=== PATIENT | female | born 1975 | race Caucasian/White ===

== ENCOUNTER → 2023-08-10 11:06 | Outpatient (BNV) | payer OTHER, SELFPAY | PROVIDERS: PCP Physician Assistant Medical; Referring Provider Physician Assistant Medical; Visit Provider Internal Medicine Medical Oncology | DX: R74.8 Abnormal levels of other serum enzymes (principal) | CPT/HCPCS: 99204; 99213 ==

== ENCOUNTER → 2023-10-05 12:30 | Outpatient (REF) | payer OTHER, SELFPAY ==
--- NOTE | ~2023-10-05 | NM_ITS ---
EXAMINATION: NM BONE SCAN OF THE WHOLE BODY CLINICAL INFORMATION: Elevated alkaline phosphatase. COMPARISON: No previous bone scan or radiographs are available for comparison. TECHNIQUE: Multiple gamma scintillation camera images of the whole body were performed 2.5 hours following the intravenous administration of 23 mCi Tc-99m MDP. FINDINGS: In the head, no significant abnormalities are present. In the thoracic cage and upper extremities, there is mildly increased activity in the acromioclavicular joints bilaterally and minimally increased activity in the sternoclavicular joints bilaterally. In the spine, a moderately severe well compensated S-shaped thoracolumbar scoliosis is present with lumbar convexity to the left. There are foci of minimally increased activity present in the lumbar spine diffusely and in the lower thoracic spine. In the pelvis, no significant abnormalities are present. In the lower extremities, there is mildly increased activity in the patellar compartments of both knees and in an additional small focus in the medial femoral condyle on the left. No other definite bony abnormalities are noted. The urinary bladder and faint visualization of both kidneys are noted. NM/NM bone scan whole body IMPRESSION: A few mild nonspecific abnormalities are noted as described above and these are all likely arthritic or traumatic in etiology. None of these abnormalities is strongly suspicious for metastatic disease. There are no abnormalities typical of Paget's disease of bone noted.
== END ==
LOC: HO.NUCMED 12:30
PROVIDERS: PCP Physician Assistant Medical; Visit Provider Internal Medicine Medical Oncology
DX: R74.8 Abnormal levels of other serum enzymes (principal)
CPT/HCPCS: 78306; A9503

== ENCOUNTER 2023-10-16 08:50 | Outpatient (REF) | payer OTHER, SELFPAY ==
--- NOTE | ~2023-10-16 | CT_ITS ---
EXAMINATION: CT ABDOMEN AND PELVIS WITH CONTRAST CLINICAL INFORMATION: Elevated alkaline phosphatase COMPARISON: None available. TECHNIQUE: Multidetector volumetric images were obtained from the superior aspect of the liver through the pubic symphysis following administration 85 mL of Omnipaque 350 intravenous contrast. Sagittal and coronal reformatted images were obtained on the technologist's workstation. Oral contrast: No This CT examination was performed using dose optimization techniques as appropriate, variously including the following: *Automated exposure control *Adjustment of mA and/or kV according to patient size (this includes techniques or standardized protocols for targeted exams where dose is matched to indication/reason for exam; i.e. extremities or head) *Use of iterative reconstruction technique DLP: 371 mGy-cm FINDINGS: LUNG BASES: Atelectasis at left lung base. Large hiatal hernia. LIVER, GALLBLADDER, AND BILIARY TREE: The liver is normal in size, shape, and attenuation. No focal hepatic lesion or biliary ductal dilatation is present. The gallbladder is unremarkable with no evidence of radiopaque gallstones, gallbladder wall thickening, or obvious pericholecystic inflammatory changes. PANCREAS: Unremarkable. SPLEEN: Unremarkable. ADRENAL GLANDS: Unremarkable. KIDNEYS AND URETERS: Indeterminate 1 cm cortical hypodensity upper pole of left kidney. Density measurement 100 Hounsfield units. 4 mm cortical hypodensity lower pole of right kidney is small characterize. No renal calculus. No hydronephrosis. BLADDER: Unremarkable. GASTROINTESTINAL TRACT: Partially visualized large hiatal hernia. Nonobstructed transverse colon and nearly the entire stomach is above the diaphragm. No obstruction of bowel. No bowel wall thickening or edema. Large volume of stool in colon. The appendix is normal. No inflammation of mesentery ABDOMINAL WALL: No significant hernia is appreciated. LYMPH NODES: Normal. VASCULAR: Unremarkable. PELVIC VISCERA: Uterus is anteverted. IUD in endometrial cavity. OSSEOUS STRUCTURES: Marked levoscoliosis of thoracolumbar spine. Multilevel degenerative spondylosis spine. CT/CT abdomen pelvis w IV con IMPRESSION: 1. No acute abnormality CT scan abdomen pelvis. 2. Large hiatal hernia. 3. Indeterminate 1 cm cortical hypodensity upper pole left kidney. This can be further assessed with ultrasound. Fleischner guidelines were followed.
[2023-10-16] MEDS: iohexoL 350 MG/ML 100 ML INFUS..BTL 85 ML IV (11:32)
[2023-10-16] MEDS: Barium Sulfate Oral (Vanilla) 450 ML ORAL.SUSP 900 ML PO (11:33)
== END 2023-10-16 08:51 | disposition home or self-care (01) ==
LOC: HO.CT 08:50
PROVIDERS: PCP Physician Assistant Medical; Visit Provider Internal Medicine Medical Oncology
DX: R39.9 Unspecified symptoms and signs involving the genitourinary system (principal); P09.8 Other abnormal findings on neonatal screening
CPT/HCPCS: 74177; Q9967

== ENCOUNTER 2023-11-06 08:03 | Outpatient (REF) | payer OTHER, SELFPAY ==
--- NOTE | ~2023-11-06 | US_ITS ---
EXAMINATION: US ABDOMEN COMPLETE CLINICAL INFORMATION: Left renal hypodensity on CT scan. COMPARISON: CT abdomen and pelvis 10/16/2023. TECHNIQUE: Real-time imaging of the abdominal viscera. Limited visualization due to bowel gas. FINDINGS: PANCREAS: Limited visualization of pancreatic tail and head. Imaged portion of pancreatic body is unremarkable. ABDOMINAL AORTA: Limited visualization. INFERIOR VENA CAVA: Visualized portions are normal. LIVER: Borderline increased hepatic parenchymal heterogeneity and echogenicity could be associated with hepatocellular disease/hepatic steatosis and substantially limits visualization. Correlation with liver function tests and clinical exam recommended to determine further management. GALLBLADDER: No gallstones. No gallbladder wall thickening. COMMON BILE DUCT: Normal in caliber measuring 0.4 cm in diameter. RIGHT KIDNEY: No hydronephrosis. No renal calculi. Limited visualization. A 0.9 cm echogenic lesion in the midpole of the right kidney is difficult to characterize due to small size and limited visualization, but may possibly represent an angiomyolipoma. This may possibly correlate with the 4 mm hypodensity seen on CT scan of 10/16/2023. The kidney measures 8.7 cm in maximum dimension. LEFT KIDNEY: No hydronephrosis. No renal calculi. Limited visualization. The left renal upper pole 1 cm indeterminate cortical hypodensity identified on CT scan of 10/16/2023 is not visualized on this exam, likely due to bowel gas and body habitus. The kidney measures 10.9 cm in maximum dimension. SPLEEN: Normal. The spleen measures 11.0 cm in maximum dimension. FREE FLUID: None. US/US abdomen complete IMPRESSION: 1. Borderline increased hepatic parenchymal heterogeneity and echogenicity could be associated with hepatocellular disease/hepatic steatosis and limits visualization. Correlation with liver function tests and clinical exam recommended to determine further management. 2. A 0.9 cm echogenic lesion in the midpole of the right kidney is difficult to characterize due to small size and limited visualization, but may possibly represent an angiomyolipoma. Previous CT scan of 10/16/2023 demonstrated a 0.4 cm hypodensity which was too small to characterize. 3. The left renal upper pole 1 cm indeterminate cortical hypodensity identified on CT scan of 10/16/2023 is not visualized on this exam, likely due to bowel gas and body habitus. CT scan employing renal mass protocol with and without intravenous contrast should be considered for further evaluation.
== END 2023-11-06 08:04 | disposition home or self-care (01) ==
LOC: HO.US 08:03
PROVIDERS: PCP Physician Assistant Medical; Visit Provider Internal Medicine Medical Oncology
DX: R39.9 Unspecified symptoms and signs involving the genitourinary system (principal)
CPT/HCPCS: 76700

== ENCOUNTER 2023-11-08 10:29 | Outpatient (AMB) | payer OTHER, SELFPAY ==
--- NOTE | 2023-11-08 10:32 | MHC.OFFVIS ---
Vital Signs 11/08/23 10:33 Height 5 ft 3 in Weight 144 lb 8 oz BMI 25.6 BP 110/76 Blood Pressure Location Lt brachial Position Sitting Pulse 72 Pulse Source Pulse Oximeter Pulse Oximetry (%) 97 Oxygen Delivery Method Room Air Intake Visit Reasons: Cough Allergies No Known Allergies Allergy (Verified 11/08/23 10:38) HPI HPI Cough: Details: Sarah is a pleasant 48 year old female, former smoker with approximately 20 pack year history, quit 2009, with underlying multiple sclerosis on Ocrevus, ADD and RLS. She was referred for pulmonary evaluation for chronic cough. She reports having COVID in March and recovering at home. Cough developed mid June, initially dry more recently wet cough, not coughing up any mucous, with persistent post nasal drip which is worse in the morning. She maintains an active lifestyle attending the gym a few times per week and reports inability to fully inspire and chest tightness with moderate exertion. She denies prior history of asthma. She reports father, smoker, with breathing issues , otherwise no pertinent family history. Recent abdominal CT, revealed mild atlectasis of LLL. No complete imaging of chest. She also notes significant scoliosis. She denies any occupational exposures. She is unsure if she has any environmental allergies. [facility] Medical History (Updated 11/08/23 @ 11:08 by Park Adkins NP) Scoliosis Multiple sclerosis Iron deficiency anemia Family History Sister Malignant neoplasm cervix Social History (Updated 11/08/23 @ 10:38 by Deepika Lala CMA) Household Members: Spouse Patient Tobacco Use Status: Former Tobacco user service: No Current occupational status: unemployed Review of Systems Const Denies chills, Denies excessive sweating, Denies fever(s), Denies headache(s) and Denies night sweats Eyes Denies dry eyes, Denies irritation and Denies itchy eyes ENT Reports Normal hearing present, Denies headache(s), Denies nasal congestion, Denies nasal discharge and Denies sore throat Card Denies chest pain, Denies chest pain at rest, Denies chest pain with activity, Denies claudication, Denies leg edema, Denies dyspnea, Denies orthopnea and Denies paroxysmal nocturnal dyspnea Resp Denies excessive phlegm production, Denies pain on inspiration, Denies pain with cough, Denies dyspnea, Denies stridor and Denies wheezing Musc Denies myalgias Neuro Reports Normal hearing present and Denies headache(s) Endo Denies excessive sweating Rickey/Lymph Denies lymphadenopathy Aller/Immun Denies itchy eyes, Denies seasonal rhinorrhea and Denies wheezing Physical Exam Vital Signs: Last Vital Signs Pulse 72 11/08/23 10:33 BP 110/76 11/08/23 10:33 Pulse Ox 97 11/08/23 10:33 Oxygen Delivery Method Room Air 11/08/23 10:33 BMI result Body Mass Index 25.6 Const General: cooperative, healthy appearing, comfortable, no acute distress, well developed and alert Orientation/consciousness: patient oriented x3 Limitations: no limitations HEENT Head: Yes normal to inspection, Yes normocephalic and Yes atraumatic Ears: hearing grossly normal bilaterally and external ears normal Eyes General: appearance normal, both eyes and all related structures Eyelids: Yes eyelids normal Sclerae: sclerae normal EOM: EOMs intact bilaterally Neck Neck: Yes normal visual inspection and Yes no lymphadenopathy Lymphatic: no lymphadenopathy noted Chest Chest palpation & inspection: normal inspection of the chest Resp Effort & Inspection: normal respiratory effort, able to speak in complete sentences, no audible wheezes, no cough, no stridor, not tachypneic, no tripod positioning and no use of accessory muscles Auscultation: clear to auscultation bilaterally Cardio Jugular venous distension: no JVD Rate: regular rate Rhythm: regular rhythm Skin Other: warm, dry General skin exam: no rashes or lesions noted Neuro General: patient oriented x3 Cranial nerves: Yes Normal hearing present Cognition (Neuro): normal cognition Gait exam (Neuro): Normal gait present Extrem General: Yes normal to inspection, Yes capillary refill normal, Yes no clubbing, cyanosis or edema and Yes no pedal edema Psych Appearance: grossly normal and well kempt Speech and movement: Normal speech and movement present and Clear speech present Affect: normal affect Attitude: cooperative Insight: Good insight present (Psych) Judgement: Good judgement present (Psych) Assessment & Plan Assessment & Plan (1) Cough: Code(s): R05.9 - Cough, unspecified Category: Medical (2) Restrictive lung disease due to kyphoscoliosis: Code(s): J98.4 - Other disorders of lung; M41.9 - Scoliosis, unspecified Category: Medical (3) Environmental allergies: Code(s): Z91.09 - Other allergy status, other than to drugs and biological substances Category: Medical Plan Unclear etiology of chronic cough, possible allergic contribution and underlying asthma. Will send for RAST and PFT to evaluate. Will also send for CXR and likely chest CT. She reports moderate post nasal drip, will trial ipratripium nasal spray. All questions were answered and patient is in agreement of plan. Will follow up in 4-6 weeks or sooner if needed. Orders: Orders XR chest 2V Today R05.9 - Cough, unspecified PFT pulmonary function test Today J98.4 - Other disorders of lung, M41.9 - Scoliosis, unspecified, R05.9 - Cough, unspecified Resp Allergy Profile Region I Today Z91.09 - Other allergy status, other than to drugs and biological substances Complete Blood Count Auto Diff Today Z91.09 - Other allergy status, other than to drugs and biological substances Immunoglobulin E Today Z91.09 - Other allergy status, other than to drugs and biological substances Medications: New ipratropium bromide administer into each nostril start 1 spray each nostril daily, then increase to twice daily if needed 2 sprays intranasal BID 30 mL 2RF Coding Level of Care Code New Pt Level 4 (84416) Diagnoses Cough R05.9 Restrictive lung disease due to kyphoscoliosis J98.4; M41.9 Environmental allergies Z91.09
[2023-11-08 10:33] VITALS: BP 110/76; PULSE 72; O2SAT 97; BMI 25.6
== END 2023-11-08 11:18 | disposition home or self-care (01) ==
PROVIDERS: PCP Physician Assistant Medical; Referring Provider Internal Medicine Medical Oncology; Visit Provider Nurse Practitioner Family
DX: R05.9 Cough, unspecified (principal); J98.4 Other disorders of lung; M41.9 Scoliosis, unspecified; Z91.09 Other allergy status, other than to drugs and biological substances
CPT/HCPCS: 99204

== ENCOUNTER → 2023-11-08 10:29 | Outpatient (BNVA) | payer OTHER, SELFPAY | PROVIDERS: PCP Physician Assistant Medical; Referring Provider Internal Medicine Medical Oncology; Visit Provider Nurse Practitioner Family | DX: R05.3 Chronic cough (principal); J98.4 Other disorders of lung; M41.9 Scoliosis, unspecified; Z91.09 Other allergy status, other than to drugs and biological substances; Z87.891 Personal history of nicotine dependence | CPT/HCPCS: 99202 ==

== ENCOUNTER 2023-11-08 11:31 | Outpatient (REF) | payer OTHER, SELFPAY ==
[2023-11-08 13:59] LABS: MANUAL DIFF FLAG NO
[2023-11-08 14:08] LABS: Basophils Absolute Auto 0.1 X10*3/uL (0.0-0.2); Basophils Percent Auto 1.3 % (0-2); Eosinophils Absolute Auto 0.2 X10*3/uL (0.0-0.4); Eosinophils Percent Auto 3.6 % (0-4); Hematocrit 38.9 % (37.0-47.0); Hemoglobin 12.3 g/dl (12.0-16.0); Lymphocytes Absolute Auto 0.9 X10*3/uL (1.2-4.9); Mean Corpuscular HGB Conc 31.6 g/dl (31.0-35.0); Mean Corpuscular Hemoglobin 28.7 pg (27.0-33.0); Mean Corpuscular Volume 90.7 fL (80.0-98.0); Mean Platelet Volume 10.5 fL (9.4-12.3); Monocytes Absolute Auto 0.5 X10*3/uL (0.1-1.2); Monocytes Percent Auto 10.8 % (2-11); Neutrophils Absolute Auto 3.1 x10*3/uL (2.0-8.3); Neutrophils Percent Auto 65.3 % (45-73); Platelet Count 334 X10*3/uL (160-400); Red Blood Count 4.29 X10*6/uL (4.20-5.50); Red Cell Distribution Width 13.7 % (11.0-16.0); White Blood Count 4.7 X10*3/uL (4.8-10.8)
[2023-11-09 20:18] LABS: Class Alternaria alternata 0; Class Aspergillus fumigatus 0; Class Bermuda Grass 0; Class Birch 0; Class Cat Dander 0; Class Cladosporium herbarum 0; Class Cockroach 0; Class Common Ragweed 0; Class Cottonwood 0; Class Derm. pterony 0; Class Dermatophagoides farinae 0; Class Dog Dander 0; Class Elm 0; Class Maple Box Elder 0; Class Mountain Cedar 0; Class Mouse Urine Protein 0; Class Mugwort 0; Class Oak 0; Class Penicillium crysogenum 0; Class Rough Pigweed 0; Class Sheep Sorrel 0; Class Sycamore 0; Class Timothy Grass 0; Class Walnut Tree 0; Class White Ash 0; Class White Mulberry 0; D001 IgE D pteronyssinus <0.10 kU/L; D002 - IgE D farinae <0.10 kU/L; E001 - IgE Cat Dander <0.10 kU/L; E005 - IgE Dog Dander <0.10 kU/L; E072-IgE Mouse Urine <0.10 kU/L; G002 IgE Bermuda Grass <0.10 kU/L; G006 - IgE Timothy Grass <0.10 kU/L; I006-IgE Cockroach, German <0.10 kU/L; Immunoglobulin E 7 kU/L (<OR=114); M001 IgE Penicillium chrysogen <0.10 kU/L; M002 - IgE Cladosporium herbar <0.10 kU/L; M003 - IgE Aspergillus fumigat <0.10 kU/L; M006 - IgE Alternaria alternat <0.10 kU/L; T001 IgE Maple/Box Elder <0.10 kU/L; T003 IgE Common Silver Birch <0.10 kU/L; T006 - IgE Cedar, Mountain <0.10 kU/L; T007 - IgE Oak, White <0.10 kU/L; T008 IgE Elm, American <0.10 kU/L; T010 - IgE Walnut <0.10 kU/L; T011 - IgE Maple Leaf Sycamore <0.10 kU/L; T014 - IgE Cottonwood <0.10 kU/L; T015 - IgE Ash, White <0.10 kU/L; T070 - IgE White Mulberry <0.10 kU/L; W001 - IgE Ragweed, Short <0.10 kU/L; W006 - IgE Mugwort <0.10 kU/L; W014 IgE Pigweed, Common <0.10 kU/L; W018 IgE Sheep Sorrel <0.10 kU/L
== END 2023-11-08 11:32 | disposition home or self-care (01) ==
LOC: HO.WFDLDS 11:31
PROVIDERS: Visit Provider Nurse Practitioner Family
DX: Z91.09 Other allergy status, other than to drugs and biological substances (principal)
CPT/HCPCS: 36415; 82785; 85025; 86003

== ENCOUNTER → 2023-11-22 09:45 | Outpatient (BNV) | payer OTHER, SELFPAY | PROVIDERS: PCP Physician Assistant Medical; Visit Provider Radiology Diagnostic Radiology | DX: Z12.31 Encounter for screening mammogram for malignant neoplasm of breast (principal) | CPT/HCPCS: 77063; 77067 ==

== ENCOUNTER 2023-11-22 09:46 | Outpatient (REF) | payer OTHER, SELFPAY ==
--- NOTE | ~2023-11-22 | MM_ITS ---
EXAMINATION: MM SCREENING DIGITAL BREAST TOMOSYNTHESIS, BILATERAL CLINICAL INFORMATION: Screening. Asymptomatic. COMPARISON: Mammography: This study is compared with prior exams dating back to TECHNIQUE: Digital breast tomosynthesis is performed in both the craniocaudal and mediolateral oblique views along with computer-aided detection (CAD). Synthesized 2D images are generated from the tomosynthesis. FINDINGS: The breasts are heterogeneously dense, which may obscure small masses (ACR BI-RADS breast composition Category c). There are no significant masses, abnormal calcifications, or other abnormalities. MM/MM tomosynthesis screening BI IMPRESSION: No mammographic evidence of malignancy. ASSESSMENT: BI-RADS BI-RADS 1 - Negative RECOMMENDATION: Routine annual mammography screening. 1 year F/U This examination should not preclude the clinical evaluation of a suspicious palpable abnormality. This patient's information was entered into a reminder system with a target due date for their next mammogram.
== END 2023-11-22 09:47 | disposition home or self-care (01) ==
LOC: HO.MAMMO 09:46
PROVIDERS: PCP Physician Assistant Medical; Visit Provider Physician Assistant Medical
DX: Z12.31 Encounter for screening mammogram for malignant neoplasm of breast (principal)
CPT/HCPCS: 77063; 77067

== ENCOUNTER 2023-11-23 10:01 | Outpatient (AMB) | payer OTHER, SELFPAY ==
--- NOTE | 2023-11-23 10:05 | A.OFFVIS_ITS ---
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 Abdullahi for scoliosis of the spine. Pt states she has back pain that she has lived with for the past 20 years. Pt states the pain is mostly in her hips but states the right hip bothers her more. Pt states she found out she had scoliosis when she was 13 after a sledding accident. Pt states she was overweight as a child and a teenager. Pt states she gets tingling down her legs occasionally as well. Allergies No Known Allergies Allergy (Verified 11/23/23 10:05) Medication List - Last Reconciled 11/23/23 by Patricia Alarcon MD bupropion HCl XL (Wellbutrin XL) 300 mg PO QAM escitalopram oxalate 20 mg PO DAILY ipratropium bromide 2 sprays intranasal BID methylphenidate HCl ER 36 mg PO DAILY ocrelizumab (Ocrevus) 600 mg IV [id number] HPI Comments Details: History of MS, diagnosed MS, managed at [facility]. Doing well. Ocrevus infusion every 6 months. No relapse since 2017, and that was after . Spasticity on lower extremities, sometimes, not needing meds. History of scoliosis diagnosed at 14, after sledding accident, had temporary paralysis for less than a day. No surgical intervention done due to cost and complexity. No bracing done either. Childhood obesity until HS. Always had back pain since then. While at 2017, had right hip pain. Resolved somewhat after . In the last 2 years, pain most left lower lumbar/PSIS area, and right SI/gluteus/hip area. Non radicular. Tingling every night on calves and feet. Denies numbness. No spine imaging done. [facility] Medical History (Updated 11/23/23 @ 10:52 by Patricia lAarcon MD) Scoliosis Multiple sclerosis Iron deficiency anemia Family History Sister Malignant neoplasm cervix Social History (Updated 11/08/23 @ 10:38 by Deepika Lala CMA) Household Members: Spouse Patient Tobacco Use Status: Former Tobacco user service: No Current occupational status: unemployed Review of Systems Const All systems reviewed & are unremarkable except as noted in HPI and below Physical Exam Constitutional: Patient appears to be in no acute distress, well nourished and well developed. Patient was appropriately conversant and oriented. Good historian. MSK: Left lumbar convexity with a milder right lower thoracic convexity noted. No scapular winging. No tenderness over trapezius or rhomboids. Tender on bilateral SI and bilateral GT. Lumbar ROM was full. Bilateral hip, knee and ankle ROM WNL. No ligamentous laxity or crepitance. No increased effusion. Straight-leg raising test negative. FABERE test positive bilateral lateral hip pain. Strength is 5/5 in all muscle groups tested. No increased tone noted. Neurological: Neurologic examination of the upper and lower extremities was nonfocal with intact sensation, muscle stretch reflexes and without focal motor deficits . Boone?s negative bilaterally. Babinski was down going bilaterally. Clonus was negative. Gait is non-antalgic without loss of balance. Results Reviewed Results Reviewed: Ordering Physician: Theo Abdullahi MD Date of Service: 10/16/23 Procedure(s): CT abdomen pelvis w IV con Accession Number(s): [id number] cc: Theo Abdullahi MD; BIA IVEY PA-C~ EXAMINATION: CT ABDOMEN AND PELVIS WITH CONTRAST CLINICAL INFORMATION: Elevated alkaline phosphatase COMPARISON: None available. TECHNIQUE: Multidetector volumetric images were obtained from the superior aspect of the liver through the pubic symphysis following administration 85 mL of Omnipaque 350 intravenous contrast. Sagittal and coronal reformatted images were obtained on the technologist's workstation. Oral contrast: No This CT examination was performed using dose optimization techniques as appropriate, variously including the following: *Automated exposure control *Adjustment of mA and/or kV according to patient size (this includes techniques or standardized protocols for targeted exams where dose is matched to indication/reason for exam; i.e. extremities or head) *Use of iterative reconstruction technique DLP: 371 mGy-cm FINDINGS: LUNG BASES: Atelectasis at left lung base. Large hiatal hernia. LIVER, GALLBLADDER, AND BILIARY TREE: The liver is normal in size, shape, and attenuation. No focal hepatic lesion or biliary ductal dilatation is present. The gallbladder is unremarkable with no evidence of radiopaque gallstones, gallbladder wall thickening, or obvious pericholecystic inflammatory changes. PANCREAS: Unremarkable. SPLEEN: Unremarkable. ADRENAL GLANDS: Unremarkable. KIDNEYS AND URETERS: Indeterminate 1 cm cortical hypodensity upper pole of left kidney. Density measurement 100 Hounsfield units. 4 mm cortical hypodensity lower pole of right kidney is small characterize. No renal calculus. No hydronephrosis. BLADDER: Unremarkable. GASTROINTESTINAL TRACT: Partially visualized large hiatal hernia. Nonobstructed transverse colon and nearly the entire stomach is above the diaphragm. No obstruction of bowel. No bowel wall thickening or edema. Large volume of stool in colon. The appendix is normal. No inflammation of mesentery ABDOMINAL WALL: No significant hernia is appreciated. LYMPH NODES: Normal. VASCULAR: Unremarkable. PELVIC VISCERA: Uterus is anteverted. IUD in endometrial cavity. OSSEOUS STRUCTURES: Marked levoscoliosis of thoracolumbar spine. Multilevel degenerative spondylosis spine. CT/CT abdomen pelvis w IV con IMPRESSION: 1. No acute abnormality CT scan abdomen pelvis. 2. Large hiatal hernia. 3. Indeterminate 1 cm cortical hypodensity upper pole left kidney. This can be further assessed with ultrasound. I reviewed records from the following: Oncology Dr. Abdullahi Assessment & Plan Assessment & Plan (1) Scoliosis: Code(s): M41.9 - Scoliosis, unspecified Category: Medical Qualifiers: Scoliosis type: idiopathic Idiopathic scoliosis type: juvenile Spinal region: thoracolumbar Qualified Code(s): M41.115 - Juvenile idiopathic scoliosis, thoracolumbar region (2) Hip pain, bilateral: Code(s): M25.551 - Pain in right hip; M25.552 - Pain in left hip Category: Medical (3) Somatic dysfunction of both sacroiliac joints: Code(s): M99.04 - Segmental and somatic dysfunction of sacral region Category: Medical Plan History of scoliosis which I believe has caused secondary/mechanically related SI joint dysfunction and trochanteric bursitis. No signs of lumbar radiculopathy or myelopathy seen on exam today. No signs of spasticity from MS. Will start with getting xrays to be done today - scoliosis views, lumbar spine, thoracic spine, hip joints. Obtaining further lumbar imaging such as MRI may also be considered if xrays show disc space loss or foraminal narrowing, to perhaps rule out spinal stenosis or disc herniation. Treatment plan would come after imaging results are reviewed with patient, and may include but not limit to PT and injections (SI joint or trochanteric injections). Discussed that if there will be need for referral for surgical intervention, the referral would most likely go to [place] as I do not know of any spine surgeons in the area that would operate on scoliosis. Assessment and plan discussed with patient, and patient was agreeable. All questions were answered thoroughly. Next follow-up in 2-3 weeks for x-ray results review. Patricia Alarcon MD, ROBERT Board Certified, [place] [employer] and Rehabilitation (ABPMR) Board Certified, [place] [employer] Electrodiagnostic [employer] (ABEM) Orders: Orders XR thoracic spine 3V Today M25.551 - Pain in right hip, M25.552 - Pain in left hip, M99.04 - Segmental and somatic dysfunction of sacral region XR hips RISHABH min 3V Today M25.551 - Pain in right hip, M25.552 - Pain in left hip, M25.559 - Pain in unspecified hip, M99.04 - Segmental and somatic dysfunction of sacral region XR scoliosis survey Today M25.551 - Pain in right hip, M25.552 - Pain in left hip, M99.04 - Segmental and somatic dysfunction of sacral region XR lumbar spine 2-3V Today M25.551 - Pain in right hip, M25.552 - Pain in left hip, M54.9 - Dorsalgia, unspecified, M99.04 - Segmental and somatic dysfunction of sacral region Coding Level of Care Code New Pt Level 4 (67688) Diagnoses Juvenile idiopathic scoliosis of thoracolumbar region M41.115 Scoliosis type: idiopathic Idiopathic scoliosis type: juvenile Spinal region: thoracolumbar Hip pain, bilateral M25.551; M25.552 Somatic dysfunction of both sacroiliac joints M99.04
== END 2023-11-23 11:05 | disposition home or self-care (01) ==
PROVIDERS: PCP Physician Assistant Medical; Visit Provider Physical Medicine & Rehabilitation
DX: M41.115 Juvenile idiopathic scoliosis, thoracolumbar region (principal); M25.551 Pain in right hip; M25.552 Pain in left hip; M99.04 Segmental and somatic dysfunction of sacral region
CPT/HCPCS: 99203

== ENCOUNTER 2023-11-23 10:01 | Outpatient (REF) | payer OTHER, SELFPAY ==
--- NOTE | ~2023-11-23 | XR_ITS ---
EXAMINATION: XR BILATERAL HIPS CLINICAL INFORMATION: Pain. COMPARISON: CT abdomen and pelvis dated 10/16/2023. TECHNIQUE: AP and frog lateral views of the bilateral hips were obtained. FINDINGS: No fracture. Hip joint spaces are maintained. Alignment is anatomic. Sacroiliac joints and pubic symphysis are normal. There are tiny accessory ossification centers adjacent to the acetabular roofs. No abnormal soft tissue calcifications. There are multiple pelvic phleboliths. An intrauterine device is noted. XR/XR hips RISHABH min 3V IMPRESSION: Normal bilateral hip radiographs. Electronically signed by: Clint Dhillon MD 12/18/2023 05:08 PM EDT [facility]station: [id number]
--- NOTE | ~2023-11-23 | XR_ITS ---
EXAMINATION: XR SCOLIOSIS CLINICAL INFORMATION: Segmental and somatic dysfunction of the sacral region. COMPARISON: None available. TECHNIQUE: A single view of the thoracolumbar spine is obtained. FINDINGS: There are no intrinsic vertebral anomalies. Using the method of Castillo, a 52 degree rotatory dextroscoliosis is seen extending from T3 to T11. A 90 degree rotatory levoscoliosis extends from T12 to L5. There is a 3.7 cm pelvic tilt, rightward cephalad. An intrauterine device is noted. XR/XR scoliosis survey IMPRESSION: There are markedly thoracic and thoracolumbar levoscoliosis, as detailed above. Electronically signed by: Clint Dhillon MD 12/18/2023 05:28 PM EDT
--- NOTE | ~2023-11-23 | XR_ITS ---
EXAMINATION: XR THORACIC SPINE CLINICAL INFORMATION: Segmental and somatic dysfunction of the sacral region. COMPARISON: None available. TECHNIQUE: Frontal, lateral and swimmer's. Views of the thoracic spine were obtained. FINDINGS: Vertebral body heights are normal. There is a marked thoracolumbar dextroscoliosis. At T7-8 and T8-9, there is moderate disc space narrowing, endplate arthropathy. At T12-L1, there is mild disc space narrowing. At L1-2 and L2-3, there is marked rightward disc space narrowing, with endplate arthropathy. No acute fracture or spondylolisthesis is seen. The posterior element are intact. The paravertebral soft tissues are unremarkable. XR/XR thoracic spine 3V IMPRESSION: 1. There is a marked thoracolumbar dextroscoliosis. 2. There is multi-level thoracolumbar degenerative disc disease and endplate arthropathy, most pronounced at T7-8, T8-9, L1-2 and L2-3. Electronically signed by: Clint Dhillon MD 12/18/2023 11:16 AM EDT
--- NOTE | ~2023-11-23 | XR_ITS ---
EXAMINATION: XR LUMBOSACRAL SPINE CLINICAL INFORMATION: Dorsalgia. COMPARISON: CT abdomen and pelvis dated 10/16/2023. TECHNIQUE: AP and lateral views of the lumbar spine and lateral view of the lumbosacral junction. FINDINGS: There is bony demineralization. There is a marked thoracolumbar rotatory levoscoliosis. There are moderate L1 and L2 rightward compression fractures. At T12-L1 and L1-2, there is moderate disc space narrowing. At T11-12 and T12-L1, there is moderate disc space narrowing. At L1-2 and L2-3, there is marked rightward disc space narrowing. At L4-5, there is marked leftward disc space narrowing. No acute fracture or spondylolisthesis is seen. The posterior elements are intact. The paravertebral soft tissues are unremarkable. An intrauterine device is noted. XR/XR lumbar spine 2-3V IMPRESSION: There is a marked thoracolumbar rotatory levoscoliosis. There are moderate L1 and L2 rightward compression fractures. There is multi-level lower thoracic and lumbar spondylosis, with degenerative disc disease most pronounced at L1-2, L2-3 and L4-5. Electronically signed by: Clint Dhillon MD 12/18/2023 06:41 PM EDT RP
== END 2023-11-23 10:02 | disposition home or self-care (01) ==
LOC: HO.XRAY 10:01
PROVIDERS: PCP Physician Assistant Medical; Visit Provider Physical Medicine & Rehabilitation
DX: M25.551 Pain in right hip (principal); M25.552 Pain in left hip; M99.04 Segmental and somatic dysfunction of sacral region; M54.9 Dorsalgia, unspecified; M41.115 Juvenile idiopathic scoliosis, thoracolumbar region
CPT/HCPCS: 72072; 72082; 72100; 73522; 99202

== ENCOUNTER 2024-01-24 09:22 | Outpatient (AMB) | payer OTHER, SELFPAY ==
--- NOTE | 2024-01-24 09:33 | MHC.OFFVIS ---
Intake Visit Reasons: OV-Scoliosis of the spine-3 wk Xray Follow up Intake Note: Sarah is a 48 year old female who presents to the office today for a follow up of her scoliosis of the spine. Pt states she is wanting to know different treatment options and wanting to know results. Allergies No Known Allergies Allergy (Verified 01/24/24 09:41) Medication List - Last Reconciled 01/24/24 by Patricia Alarcon MD bupropion HCl XL (Wellbutrin XL) 300 mg PO QAM escitalopram oxalate 20 mg PO DAILY ipratropium bromide 2 sprays intranasal BID methylphenidate HCl ER 36 mg PO DAILY ocrelizumab (Ocrevus) 600 mg IV [id number] HPI Comments Details: She was referred by Dr. Abdullahi for scoliosis. History of MS, diagnosed MS, managed at [facility]. Doing well. Ocrevus infusion every 6 months. No relapse since 2017, and that was after . Spasticity on lower extremities, sometimes, not needing meds. History of scoliosis diagnosed at 14, after sledding accident, had temporary paralysis for less than a day. No surgical intervention done due to cost and complexity. No bracing done either. Childhood obesity until HS. Always had back pain since then. While 2017, had right hip pain. Resolved somewhat after . In the last 2 years, pain most left lower lumbar/PSIS area, and right SI/gluteus/hip area. Non radicular. Tingling every night on calves and feet. Denies numbness. Here today to discuss xray results. No severe back pain episodes since I last saw her. No hospitalizations or infections. [facility] Medical History (Updated 11/23/23 @ 10:52 by Patricia Alarcon MD) Scoliosis Multiple sclerosis Iron deficiency anemia Family History Sister Malignant neoplasm cervix Social History Household Members: Spouse Patient Tobacco Use Status: Former Tobacco user service: No Current occupational status: unemployed Physical Exam Patient appears to be in no acute distress, well nourished and well developed. Patient was appropriately conversant and oriented. Gait is non-antalgic without loss of balance. Results Reviewed Results Reviewed: Ordering Physician: Patricia Portillo Date of Service: 11/23/23 Procedure(s): XR scoliosis survey Accession Number(s): [id number] cc: BIA IVEY PA-C; Patricia Portillo~ EXAMINATION: XR SCOLIOSIS CLINICAL INFORMATION: Segmental and somatic dysfunction of the sacral region. COMPARISON: None available. TECHNIQUE: A single view of the thoracolumbar spine is obtained. FINDINGS: There are no intrinsic vertebral anomalies. Using the method of Castillo, a 52 degree rotatory dextroscoliosis is seen extending from T3 to T11. A 90 degree rotatory levoscoliosis extends from T12 to L5. There is a 3.7 cm pelvic tilt, rightward cephalad. An intrauterine device is noted. XR/XR scoliosis survey IMPRESSION: There are markedly thoracic and thoracolumbar levoscoliosis, as detailed above. Electronically signed by: Clint Dhillon MD 12/18/2023 05:28 PM EDT RP Workstation: [id number] Ordering Physician: Patricia Portillo Date of Service: 11/23/23 Procedure(s): XR thoracic spine 3V Accession Number(s): [id number] cc: BIA IVEY PA-C; Patricia Portillo~ EXAMINATION: XR THORACIC SPINE CLINICAL INFORMATION: Segmental and somatic dysfunction of the sacral region. COMPARISON: None available. TECHNIQUE: Frontal, lateral and swimmer's. Views of the thoracic spine were obtained. FINDINGS: Vertebral body heights are normal. There is a marked thoracolumbar dextroscoliosis. At T7-8 and T8-9, there is moderate disc space narrowing, endplate arthropathy. At T12-L1, there is mild disc space narrowing. At L1-2 and L2-3, there is marked rightward disc space narrowing, with endplate arthropathy. No acute fracture or spondylolisthesis is seen. The posterior element are intact. The paravertebral soft tissues are unremarkable. XR/XR thoracic spine 3V IMPRESSION: 1. There is a marked thoracolumbar dextroscoliosis. 2. There is multi-level thoracolumbar degenerative disc disease and endplate arthropathy, most pronounced at T7-8, T8-9, L1-2 and L2-3. Electronically signed by: Clint Dhillon MD 12/18/2023 11:16 AM EDT Ordering Physician: Patricia Portillo Date of Service: 11/23/23 Procedure(s): XR lumbar spine 2-3V Accession Number(s): [id number] cc: BIA IVEY PA-C; Patricia Portillo~ EXAMINATION: XR LUMBOSACRAL SPINE CLINICAL INFORMATION: Dorsalgia. COMPARISON: CT abdomen and pelvis dated 10/16/2023. TECHNIQUE: AP and lateral views of the lumbar spine and lateral view of the lumbosacral junction. FINDINGS: There is bony demineralization. There is a marked thoracolumbar rotatory levoscoliosis. There are moderate L1 and L2 rightward compression fractures. At T12-L1 and L1-2, there is moderate disc space narrowing. At T11-12 and T12-L1, there is moderate disc space narrowing. At L1-2 and L2-3, there is marked rightward disc space narrowing. At L4-5, there is marked leftward disc space narrowing. No acute fracture or spondylolisthesis is seen. The posterior elements are intact. The paravertebral soft tissues are unremarkable. An intrauterine device is noted. XR/XR lumbar spine 2-3V IMPRESSION: There is a marked thoracolumbar rotatory levoscoliosis. There are moderate L1 and L2 rightward compression fractures. There is multi-level lower thoracic and lumbar spondylosis, with degenerative disc disease most pronounced at L1-2, L2-3 and L4-5. Electronically signed by: Clint Dhillon MD 12/18/2023 06:41 PM EDT Ordering Physician: Patricia Portillo Date of Service: 11/23/23 Procedure(s): XR hips RISHABH min 3V Accession Number(s): [id number] cc: BIA IVEY PA-C; Patricia Portillo~ EXAMINATION: XR BILATERAL HIPS CLINICAL INFORMATION: Pain. COMPARISON: CT abdomen and pelvis dated 10/16/2023. TECHNIQUE: AP and frog lateral views of the bilateral hips were obtained. FINDINGS: No fracture. Hip joint spaces are maintained. Alignment is anatomic. Sacroiliac joints and pubic symphysis are normal. There are tiny accessory ossification centers adjacent to the acetabular roofs. No abnormal soft tissue calcifications. There are multiple pelvic phleboliths. An intrauterine device is noted. XR/XR hips RISHABH min 3V IMPRESSION: Normal bilateral hip radiographs. Electronically signed by: Clint Dhillon MD 12/18/2023 05:08 PM EDT RP Assessment & Plan Assessment & Plan (1) Scoliosis: Code(s): M41.9 - Scoliosis, unspecified Category: Medical Qualifiers: Scoliosis type: idiopathic Idiopathic scoliosis type: juvenile Spinal region: thoracolumbar Qualified Code(s): M41.115 - Juvenile idiopathic scoliosis, thoracolumbar region Plan We were able to look at the xray images today. 52 degrees on thoracic and 90 degrees on lumbar. No past imaging for comparison. Hip xrays no arthritis. I am referring her to a orthospine surgeon for further evaluation and management. Would defer further need of any imaging/MRI to them if needed. Referral to Dr. Zeus Newman, [facility]. Our office will facilitate the referreral and patient is agreeable. She will obtain CD of imaging to bring with her. Assessment and plan discussed with patient, and patient was agreeable. All questions were answered thoroughly. Total of 45 minutes spent today including chart review, results review, history taking, physical examination, discussion of assessment and plan, and coordination of care. Patricia Alarcon MD, ROBERT Board Certified, [place] [employer] and Rehabilitation (ABPMR) Board Certified, [place] [employer] Board of Electrodiagnostic Medicine (ABEM) Orders: Referrals Orthopedics Referral M41.115 - Juvenile idiopathic scoliosis, thoracolumbar region Coding Level of Care Code Est Pt Level 4 (99863) Diagnoses Juvenile idiopathic scoliosis of thoracolumbar region M41.115 Scoliosis type: idiopathic Idiopathic scoliosis type: juvenile Spinal region: thoracolumbar
== END 2024-01-24 11:54 | disposition home or self-care (01) ==
PROVIDERS: PCP Physician Assistant Medical; Visit Provider Physical Medicine & Rehabilitation
DX: M41.115 Juvenile idiopathic scoliosis, thoracolumbar region (principal)
CPT/HCPCS: 99214

== ENCOUNTER → 2024-01-24 09:22 | Outpatient (BNVA) | payer OTHER, SELFPAY | PROVIDERS: PCP Physician Assistant Medical; Visit Provider Physical Medicine & Rehabilitation ==

== ENCOUNTER 2024-03-12 11:27 | Outpatient (AMB) | payer OTHER, SELFPAY ==
--- NOTE | 2024-03-12 11:41 | MHC.OFFWIV ---
Intake Vital Signs 03/12/24 11:42 Height 5 ft 3 in Weight 150 lb 2 oz BMI 26.6 BP 110/74 Blood Pressure Location Lt brachial Position Sitting Pulse 107 H Pulse Source Pulse Oximeter Temp 99.4 F Temp Source Oral Pulse Oximetry (%) 98 Oxygen Delivery Method Room Air Intake Visit Reasons: EP sick last monday, clearance for work Intake Note: Patient here for work clearance as she was sick this past week. Patient Tobacco Use Status: Former Tobacco user Patient : No Allergies No Known Allergies Allergy (Verified 03/12/24 11:44) Do you need a note to return to daycare/school/sports/work: Yes HPI HPI Comments History of Present Illness Details This is a 48-year-old female with a past medical history of multiple sclerosis presenting for evaluation of a scratchy throat and fatigue that first started on Monday. Patient states that she slept throughout the weekend and feels better today. Patient is requesting a note to return to work. 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 Patient denies having any fevers, chills, ear pain, cough, chest pain or shortness for breath. [facility] Medical History (Updated 03/12/24 @ 12:46 by Keiry Kelley PA-C) Scoliosis Multiple sclerosis Iron deficiency anemia Family History Sister Malignant neoplasm cervix Social History Household Members: Spouse Patient Tobacco Use Status: Former Tobacco user Patient : No service: No Current occupational status: unemployed Review of Systems Const All systems reviewed & are unremarkable except as noted in HPI and below Denies chills, Reports fatigue, Denies fever(s), Denies headache(s) and Reports lethargy (Improved) Eyes Reports no additional complaints ENT Reports no additional complaints, Denies otalgia, Denies facial pain, Denies headache(s), Denies sinus pain and Reports sore throat Card Reports no additional complaints Resp Reports no additional complaints and Denies cough GI Reports no additional complaints Reports no additional complaints Skin/Breast Reports system reviewed and no additional complaints, except as documented Neuro Reports no additional complaints and Denies headache(s) Psych Reports no additional complaints Endo Reports fatigue Physical Exam Vital Signs: Last Vital Signs Temp 99.4 F 03/12/24 11:42 Pulse 107 H 03/12/24 11:42 BP 110/74 03/12/24 11:42 Pulse Ox 98 03/12/24 11:42 Oxygen Delivery Method Room Air 03/12/24 11:42 BMI result Body Mass Index 26.6 Recheck heart rate 88bpm Const General: cooperative, healthy appearing, comfortable and no acute distress Nutritional Appearance: average body habitus Orientation/consciousness: patient oriented x3 Limitations: no limitations HEENT Head: Yes normal to inspection and Yes normocephalic Ears: hearing grossly normal bilaterally, external ears normal, TM's normal bilaterally and EAC's normal General nose exam: Normal external nose present Face and sinus: Yes normal facial exam Mouth: Normal oral and palatal mucosa present and moist mucous membranes Throat: Yes posterior oropharynx normal (There is no edema, erythema or exudates of the posterior oropharynx) and No postnasal drainage Eyes General: appearance normal, both eyes and all related structures Conjunctivae: conjunctivae normal Pupils: Equal, round and reactive pupils present EOM: EOMs intact bilaterally Neck Lymphatic: no lymphadenopathy noted Resp Effort & Inspection: normal respiratory effort, no respiratory distress and not tachypneic Auscultation: clear to auscultation bilaterally Cardio Rate: regular rate Rhythm: regular rhythm Skin General skin exam: no rashes or lesions noted Neuro General: patient oriented x3 Cranial nerves: Yes Equal, round and reactive pupils present Psych Appearance: grossly normal Mental Status: mental status grossly normal Insight: Good insight present (Psych) Judgement: Good judgement present (Psych) Assessment & Plan Assessment & Plan (1) Acute pharyngitis, unspecified: Comment: There is no clinical evidence of a bacterial etiology to her acute pharyngitis. Code(s): J02.9 - Acute pharyngitis, unspecified Qualifiers: Pharyngitis/tonsillitis etiology: unspecified etiology Qualified Code(s): J02.9 - Acute pharyngitis, unspecified Plan: Ibuprofen or Tylenol as needed. Increase clear fluids daily and follow up with primary care in 7-10 days if her symptoms persist Coding Level of Care Code Est Pt Level 3 (50538) Diagnoses Acute pharyngitis, unspecified etiology J02.9 Pharyngitis/tonsillitis etiology: unspecified etiology Time Spent (min) 20
[2024-03-12 11:42] VITALS: BP 110/74; PULSE 107; TEMP 37.4; O2SAT 98; BMI 26.6
== END 2024-03-12 12:39 | disposition home or self-care (01) ==
PROVIDERS: PCP Physician Assistant Medical; Visit Provider Physician Assistant
DX: J02.9 Acute pharyngitis, unspecified (principal)

== ENCOUNTER → 2024-03-12 11:27 | Outpatient (BNVA) | payer OTHER, SELFPAY | PROVIDERS: PCP Physician Assistant Medical; Visit Provider Physician Assistant ==

== ENCOUNTER 2024-03-14 14:01 | Outpatient (REF) | payer OTHER, SELFPAY ==
--- NOTE | ~2024-03-14 | CT_ITS ---
EXAMINATION: CT ABDOMEN AND PELVIS WITHOUT AND WITH CONTRAST CLINICAL INFORMATION: Bilateral renal cysts. COMPARISON: October 15, 2013. TECHNIQUE: Multidetector volumetric imaging was performed of the abdomen and pelvis before and after the IV administration of 85 mL of Omnipaque 50 intravenous contrast. Sagittal and coronal reformatted images were obtained on the technologist's workstation. This CT examination was performed using dose optimization techniques as appropriate, variously including the following: *Automated exposure control *Adjustment of mA and/or kV according to patient size (this includes techniques or standardized protocols for targeted exams where dose is matched to indication/reason for exam; i.e. extremities or head) *Use of iterative reconstruction technique DLP: 549 mGy-cm FINDINGS: LUNG BASES: The lung bases appear clear, with no evidence of inflammation or nodules. LIVER, GALLBLADDER, AND BILIARY TREE: Subcentimeter, round, homogeneous, hypodense hepatic lesions (segment 4, image 20; segment 7/8, image 25; series 4), not significant changed compared with October 16, 2023. In the absence of known or suspected malignancy elsewhere, the findings likely represent benign entities, such as simple cysts and/or hemangiomata. The liver otherwise appears unremarkable in size, shape, and attenuation. No particularly suspicious focal hepatic lesion or biliary ductal dilatation is appreciated. Unremarkable appearance of the gallbladder. PANCREAS: Unremarkable SPLEEN: Unremarkable ADRENAL GLANDS: Unremarkable KIDNEYS AND URETERS: Subcentimeter, round, homogeneous, hypodense renal structure, too small to characterize (image 52, series 5), not significantly changed compared with October 16, 2023, almost certainly benign. Subcentimeter right lower pole benign angiomyolipoma. No further dedicated follow-up imaging of the above findings is indicated. The kidneys otherwise appear unremarkable in size, shape, and attenuation. No hydronephrosis, hydroureter, or calculi seen. BLADDER: Unremarkable GASTROINTESTINAL TRACT: Suspect large hiatus hernia containing much of the stomach as well as a short segment of the splenic flexure of the colon. ABDOMINAL WALL: No significant hernia is appreciated. LYMPH NODES: No evidence of adenopathy by size criteria. VASCULAR: Unremarkable PELVIC VISCERA: IUD. OSSEOUS STRUCTURES: S-shaped scoliosis, convex to the left in the lumbar region. CT/CT abdomen pelvis wo/w IV con IMPRESSION: Subcentimeter, round, homogeneous, hypodense renal structure, too small to characterize, significantly changed compared with October 16, 2023, almost certainly benign. Subcentimeter right lower pole benign angiomyolipoma. No further dedicated follow-up imaging of the above findings is indicated. Suspect large hiatus hernia containing much of the stomach as well as a short segment of the splenic flexure of the colon. S-shaped scoliosis, convex to the left in the lumbar region. Electronically signed by: Asher Cates MD 03/15/2024 12:08 PM BALTAZAR
[2024-03-14] MEDS: iohexoL 350 MG/ML 100 ML INFUS..BTL 85 ML IV (14:43)
== END 2024-03-14 14:02 | disposition home or self-care (01) ==
LOC: HO.CT 14:01
PROVIDERS: PCP Physician Assistant Medical; Visit Provider Internal Medicine Medical Oncology
DX: N28.1 Cyst of kidney, acquired (principal)
CPT/HCPCS: 74178; Q9967

== ENCOUNTER 2024-04-09 15:56 | Outpatient (REF) | payer OTHER, SELFPAY ==
[2024-04-09 11:15] VITALS: PULSE 92
--- NOTE | 2024-04-09 15:59 | PFT_ITS ---
Flows: FEV1: 103 % of predicted at 3.02 L FVC: 103 % of predicted at 3.77 L FEV1/FVC: 80 % Bronchodilator response: Absent Volumes: Total lung capacity: 90 % of predicted at 4.93 L Residual volume: 80 % of predicted at 1.24 L Slow vital capacity: 94 % of predicted at 3.70 L Expiratory reserve volume: 74 % of predicted at 0.84 L Diffusion capacity: Normal Impression: No obstructive or restrictive ventilatory defect. No bronchodilator response. Normal pulmonary function test. MTDD
== END 2024-04-09 15:57 | disposition home or self-care (01) ==
LOC: HO.RESP 15:56
PROVIDERS: PCP Physician Assistant Medical; Visit Provider Nurse Practitioner Family
DX: R05.9 Cough, unspecified (principal); M41.9 Scoliosis, unspecified; J98.4 Other disorders of lung
CPT/HCPCS: 94010; 94640; 94727; 94729

== ENCOUNTER → 2024-04-09 15:59 | Outpatient (BNV) | payer OTHER, SELFPAY | PROVIDERS: PCP Physician Assistant Medical; Visit Provider Internal Medicine Pulmonary Disease | DX: J98.4 Other disorders of lung (principal); R05.9 Cough, unspecified | CPT/HCPCS: 94060; 94727; 94729 ==

== ENCOUNTER 2024-05-08 16:05 | Outpatient (AMB) | payer OTHER, SELFPAY ==
[2024-05-08 16:04] VITALS: BP 110/60; PULSE 82; O2SAT 96; BMI 26.2
--- NOTE | 2024-05-08 16:04 | A.OFFVIS_ITS ---
Vital Signs 05/08/24 16:04 Height 5 ft 3 in Weight 148 lb BMI 26.2 BP 110/60 Blood Pressure Location Rt brachial Position Sitting Pulse 82 Pulse Source Pulse Oximeter Pulse Oximetry (%) 96 Oxygen Delivery Method Room Air Intake Visit Reasons: Cough/PFT Follow Up Source Inspector Required: No Remittance Clerk: Remittance Clerk offered & declined Accompanied by: Self / Same As Patient Allergies No Known Allergies Allergy (Verified 05/08/24 16:12) Medication List - Last Reconciled 05/08/24 by Cony Aguilar LPN bupropion HCl XL (Wellbutrin XL) 300 mg PO QAM escitalopram oxalate 20 mg PO DAILY ipratropium bromide 2 sprays intranasal BID ipratropium bromide 2 sprays intranasal BID methylphenidate HCl ER 36 mg PO DAILY ocrelizumab (Ocrevus) 600 mg IV [id number] HPI HPI Cough/PFT Follow Up: Details: Sarah is a pleasant 49 year old female, former smoker with approximately 20 pack year history, quit 2009, with underlying multiple sclerosis on Ocrevus, ADD and RLS. She was initially referred for pulmonary evaluation for chronic cough after roxanne COVID 04/15. However since the last visit she reports cough is now infrequent and has been using ipratropium nasal spray with good effect for post nasal drip. She does endorse decrease in endurance when active requiring more frequent resting over the years. She denies wheezing or chest tightness. She denies prior h/o asthma. She denies any visits to urgent care or hospitalizations related to respiratory distress since the last visit. She has been evaluated by environmental monitoring specialist as she has significant kyphoscoliosis and was offered surgical options however unsure if she will proceed. Today she presents to review RAST and PFT. She was also sent for CXR but unaware of order. [facility] Medical History (Updated 05/08/24 @ 17:00 by Park Adkins NP) Scoliosis Multiple sclerosis Iron deficiency anemia Family History Sister Malignant neoplasm cervix Social History Household Members: Spouse Patient Tobacco Use Status: Former Tobacco user service: No Current occupational status: unemployed Review of Systems Const Denies chills, Denies excessive sweating, Denies fever(s), Denies headache(s) and Denies night sweats Eyes Denies dry eyes, Denies irritation and Denies itchy eyes ENT Reports Normal hearing present, Denies headache(s), Denies nasal congestion, Den ies nasal discharge and Denies sore throat Card Denies chest pain, Denies chest pain at rest, Denies chest pain with activity, Denies claudication, Denies leg edema, Denies orthopnea and Denies paroxysmal nocturnal dyspnea Resp Denies excessive phlegm production, Denies pain on inspiration, Denies pain with cough, Denies stridor and Denies wheezing Musc Denies myalgias Neuro Reports Normal hearing present and Denies headache(s) Endo Denies excessive sweating Rickey/Lymph Denies lymphadenopathy Aller/Immun Denies itchy eyes, Denies seasonal rhinorrhea and Denies wheezing Physical Exam Vital Signs: Last Vital Signs Pulse 82 05/08/24 16:04 BP 110/60 05/08/24 16:04 Pulse Ox 96 05/08/24 16:04 Oxygen Delivery Method Room Air 05/08/24 16:04 BMI result Body Mass Index 26.2 Const General: cooperative, healthy appearing, comfortable, no acute distress, well developed and alert Orientation/consciousness: patient oriented x3 Limitations: no limitations HEENT Head: Yes normal to inspection, Yes normocephalic and Yes atraumatic Ears: hearing grossly normal bilaterally and external ears normal Eyes General: appearance normal, both eyes and all related structures Eyelids: Yes eyelids normal Sclerae: sclerae normal EOM: EOMs intact bilaterally Neck Neck: Yes normal visual inspection and Yes no lymphadenopathy Lymphatic: no lymphadenopathy noted Chest Chest palpation & inspection: normal inspection of the chest Resp Effort & Inspection: normal respiratory effort, able to speak in complete sentences, no audible wheezes, no cough, no stridor, not tachypneic, no tripod positioning and no use of accessory muscles Auscultation: clear to auscultation bilaterally Cardio Jugular venous distension: no JVD Rate: regular rate Rhythm: regular rhythm Skin Other: warm, dry General skin exam: no rashes or lesions noted Neuro General: patient oriented x3 Cranial nerves: Yes Normal hearing present Cognition (Neuro): normal cognition Gait exam (Neuro): Normal gait present Extrem General: Yes normal to inspection, Yes capillary refill normal, Yes no clubbing, cyanosis or edema and Yes no pedal edema Psych Appearance: grossly normal and well kempt Speech and movement: Normal speech and movement present and Clear speech present Affect: normal affect Attitude: cooperative Insight: Good insight present (Psych) Judgement: Good judgement present (Psych) Assessment & Plan Assessment & Plan (1) Asthma: Code(s): J45.909 - Unspecified asthma, uncomplicated Category: Medical (2) Cough: Code(s): R05.9 - Cough, unspecified Category: Medical Plan Reviewed PFT which revealed no obstructive or restrictive defect. No response to bronchodilator except in small to medium airways. Lung volumes WNL, despite significant thoracic and lumbar scoliosis. Increased DLCO. PFT suggestive of small airways disease, will empirically trial Breo. Discussed importance of good oral hygiene to prevent thrush. Reviewed RAST, IgE and eosoinphils which were unremarkable. Patient unaware of previous CXR order, she agreed to have this performed. All questions were answered and patient is in agreement of plan. Will follow up in 6-8 weeks or sooner if needed. Orders: Orders XR chest 2V Today R06.00 - Dyspnea, unspecified Medications: New fluticasone furoate-vilanterol 100-25 mcg/dose (Breo Ellipta) 1 inh inhalation DAILY 60 ea 3RF Coding Level of Care Code Est Pt Level 4 (82065) Diagnoses Asthma J45.909 Cough R05.9
== END 2024-05-08 16:42 | disposition home or self-care (01) ==
PROVIDERS: PCP Physician Assistant Medical; Visit Provider Nurse Practitioner Family
DX: J45.909 Unspecified asthma, uncomplicated (principal); R05.9 Cough, unspecified
CPT/HCPCS: 99214

== ENCOUNTER → 2024-05-08 16:05 | Outpatient (BNVA) | payer OTHER, SELFPAY | PROVIDERS: PCP Physician Assistant Medical; Visit Provider Nurse Practitioner Family ==

== ENCOUNTER 2024-05-29 14:19 | Outpatient (AMB) | payer OTHER, SELFPAY ==
--- NOTE | 2024-05-29 14:22 | A.OFFVIS_ITS ---
Vital Signs 05/29/24 14:30 Height 5 ft 3 in Weight 144 lb 2.917 oz BMI 25.5 BP 118/70 Blood Pressure Location Rt brachial Position Sitting Pulse 94 Pulse Source Pulse Oximeter Pulse Oximetry (%) 98 Oxygen Delivery Method Room Air Intake Visit Reasons: Colonoscopy consult - Ref by Dr. Abdullahi Intake Note: NEW PATIENT for Initial colo screening. Chief Complaint; Abn labs per Dr. Abdullahi. No GI concerns per pt. Pt states that US of Liver and Kidneys was done within the last few mos per [facility]. Possible lesion reported per pt. Research Animal Attendant Required: No Accompanied by: Self / Same As Patient Allergies No Known Allergies Allergy (Verified 05/29/24 14:35) HPI HPI Colonoscopy consult - Ref by Dr. Abdullahi: Details: 49-year-old female with past medical history of asthma, scoliosis, restrictive lung disease due to kyphoscoliosis, elevated alkaline phosphatase level, MS as, depression is here today for initial consultation. Patient was referred by Dr. Abdullahi her grade tamper. Patient reports that her ALP has been elevated since 2009 or so. Patient had GI workup in [place] where she has to live. Liver biopsy in 2018 were normal. Patient had bone scan at that time was also normal. Ultrasound of the abdomen showed fatty liver. Patient reports that because of her scoliosis she is always in pain, however she is trying to exercise. Patient was diagnosed with multiple sclerosis, however surprisingly she states that she is doing fairly well and is able to do multiple activities. Patient reports that she had vaginal delivery over 6 years ago of her daughter. Patient reports to be feeling fairly well. Occasional indigestion, however patient is trying to eat well. Patient is seen pulmonology here at the hospital. Was scheduled to go for colonoscopy at [facility], however patient decided to stay at [facility]. [facility] Medical History Scoliosis Multiple sclerosis Iron deficiency anemia Family History Sister Malignant neoplasm cervix Social History Household Members: Spouse Patient Tobacco Use Status: Former Tobacco user service: No Current occupational status: unemployed Review of Systems Const Denies weight gain and Denies weight loss ENT Reports no additional complaints, Denies dysphagia and Denies odynophagia Card Reports no additional complaints Resp Reports no additional complaints GI Denies abdominal pain, Denies belching, Denies melena, Denies bloating, Denies change in bowel habits, Denies dysphagia, Denies excessive flatus, Denies dyspepsia, Denies heartburn, Denies diarrhea, Denies loose stools, Denies nausea, Denies odynophagia and Denies vomiting Reports no additional complaints Musc Reports no additional complaints Neuro Reports no additional complaints Psych Reports no additional complaints Endo Reports no additional complaints Physical Exam Vital Signs: Last Vital Signs Pulse 94 05/29/24 14:30 BP 118/70 05/29/24 14:30 Pulse Ox 98 05/29/24 14:30 Oxygen Delivery Method Room Air 05/29/24 14:30 BMI result Body Mass Index 25.5 Const General: healthy appearing, no acute distress and well developed Nutritional Appearance: well nourished Orientation/consciousness: patient oriented x3 Resp Effort & Inspection: normal respiratory effort, able to speak in complete sentences, no tracheal deviation and symmetric chest movement Auscultation: clear to auscultation bilaterally Cardio Rate: regular rate GI Inspection: Yes normal to inspection and No distended Palpation (GI): Soft to palpation, not firm, nontender and No hepatosplenomegaly present Auscultation: normal bowel sounds General: Yes no CVA tenderness Back/Spine/Pelvis Back: no CVA tenderness Skin General skin exam: elasticity normal, turgor normal and dry skin Neuro General: patient oriented x3 Psych Appearance: grossly normal Mental Status: mental status grossly normal Assessment & Plan Assessment & Plan (1) Elevated alkaline phosphatase level: Code(s): R74.8 - Abnormal levels of other serum enzymes Category: Medical (2) Screen for colon cancer: Code(s): Z12.11 - Encounter for screening for malignant neoplasm of colon Plan Patient reports that she had liver biopsy in 2018 that was normal. Will check AMA although negative in July of 2023 and most likely will be negative. Patient will be sent for colonoscopy. Patient denies any issues with anesthesia in the past. No history of sleep apnea. Restrictive lung disease due to kyphoscoliosis. Patient denies any cardiac or respiratory symptoms. Denies melena, hematochezia, unintentional weight loss or ribbon like stools. Denies any family history of CRC. What to expect before during and after procedure discussed with patient. Stressed the importance of good bowel prep and clear liquid diet day before procedure. I will see patient after the procedure. She will call our office if she will have any GI concerning symptoms. She is agreeable to this plan and verbalizes understanding of instructions. She was given the opportunity to ask questions and all questions answered. Thank you for allowing me to participate in her care Orders: Orders Vitamin B12 and Folate 05/29/24 R74.8 - Abnormal levels of other serum enzymes Vitamin D 25-OH (D2 and D3) 05/29/24 R74.8 - Abnormal levels of other serum enzymes Mitochondrial Antibody 05/29/24 R74.8 - Abnormal levels of other serum enzymes Medications: New bisacodyl (Dulcolax (bisacodyl)) take 4 tabs at noon the day before your colonoscopy 20 mg (4 x 5 mg) PO ONCE 1 day 4 tabs 0RF Z12.11 - Encounter for screening for malignant neoplasm of colon polyethylene glycol 3350 (Miralax) As directed by gastroenterology department at [facility] 238 grams PO ONCE 238 grams 0RF Z12.11 - Encounter for screening for malignant neoplasm of colon Coding Level of Care Code New Pt Level 3 (68104) Diagnoses Elevated alkaline phosphatase level R74.8 Screen for colon cancer Z12.11 Time Spent (min) 40 Comment 30 minutes spent with patient and additional 10 minutes spent reviewing her records
[2024-05-29 14:30] VITALS: BP 118/70; PULSE 94; O2SAT 98; BMI 25.5
--- OUTSIDE RECORDS SUMMARY | 2024-05-29 15:32 | XMS_ITS | Referral Summary ---
Author Organization [facility] Address [address] [place] [address] Care Team Providers Care Clinical Quality Assurance Specialist Name Role Phone Ness Levi Primary Care Provider [phone] Encounters Date Type Department Care Team Description 05/01/2024 3:15 PM EST Office Visit [facility] [address] [place] [address] Rhett Johnson MD Idiopathic scoliosis in adult patient (Primary Dx); Post-menopausal 03/07/2024 2:45 PM EST - 03/07/2024 11:59 PM EST Hospital Encounter [facility] [address] [place] [address] Juvenile idiopathic scoliosis of thoracolumbar region Discharge Disposition: Home or Self Care () 03/07/2024 2:00 PM EST Office Visit [facility] [address] [place] [address] Merry Friend PA Juvenile idiopathic scoliosis of thoracolumbar region (Primary Dx) from Last 3 Months Allergies No known active allergies Medications buPROPion XL (WELLBUTRIN XL) 300 mg tablet Take 300 mg by mouth once a day. Active escitalopram (LEXAPRO) 20 mg tablet 8 Active ipratropium (ATROVENT) 0.03% nasal spray PLEASE SEE ATTACHED FOR DETAILED DIRECTIONS 4 Active methylphenidate ER 36 mg tablet 4 Active ocrelizumab (OCREVUS INTRAVENOU) Active Active Problems No known active problems Social History Tobacco Use Types Packs/Day Years Used Date Smoking Tobacco: Former Cigarettes Smokeless Tobacco: Never Tobacco Cessation:Counseling Given: Not Answered Alcohol Use Standard Drinks/Week Comments Not Currently 0 (1 standard drink = 0.6 oz pur e alcohol) Comments Unknown Sex and Gender Information Value Date Recorded Sex Assigned at Female 02/07/2024 5:04 PM EDT Legal Sex Female 10:47 AM EDT Gender Identity Female 03/01/2024 4:37 PM EST Sexual Orientation Choose not to disclose 2023 4:37 PM EST Last Filed Vital Signs Vital Sign Reading Time Taken Comments Blood Pressure - - Pulse - - Temperature - - Respiratory Rate - - Oxygen Saturation - - Inhaled Oxygen Concentration - - Weight 63.9 kg (140 lb 14 oz) 05/01/2024 3:49 PM EST Height 158.2 cm (5' 2.3 ) 05/01/2024 3:49 PM EST Body Mass Index 25.52 05/01/2024 3:49 PM EST Plan of Treatment Upcoming Encounters Date Type Department Care Team (Late st Contact Info) Description 10/30/2024 11:00 AM EDT Follow-Up [facility] [address] [place] [address] Rhett Johnson MD [address] [place] [address] Procedures * Due to [place] [employer] law, this organization might not be sharing negative HIV tests. Procedure Name Priority Date/Time Associated Diagnosis Comments MRI THORACIC SPINE WO CONTRAST Routine 04/27/2024 5:55 PM EST Juvenile idiopathic scoliosis of thoracolumbar region MRI LUMBAR SPINE WO CONTRAST Routine 04/27/2024 5:25 PM EST Juvenile idiopathic scoliosis of thoracolumbar region XR SCOLIOSIS 2-3 VIEWS Routine 03/07/2024 3:14 PM EST Juvenile idiopathic scoliosis of thoracolumbar region from Last 3 Months Results * Due to [place] state law, this organization might not be sharing negative HIV tests. * MRI Thoracic Spine WO Contrast (04/27/2024 5:55 PM EST) Anatomical Region Laterality Modality Spine, T-spine Magnetic Resonan ce 04/27/2024 5:25 PM EST Impressions 05/01/2024 3:24 PM EST IMPRESSION: 1. The examination of the thoracic spine is limited due to the patient's severe thoracolumbar scoliosis. 2. There is marked scoliosis of the midthoracic spine convex to the right and the lower thoracic spine and upper lumbar spine convex to the left. ??Other than the scoliosis, the lumbar and sacral vertebral bodies demonstrate relatively normal alignment. ??No bony destructive lesions are identified within the thoracic spine. 3. ??The thoracic spinal cord appears normal in size, contour and signal intensity and terminates at L1 level. 4. ??No significant thoracic disc herniation is identified. If this radiology report contains a blank impression section, it is an incomplete radiology report. ??Please contact the interpreting radiologist or applicable radiology division as soon as possible to obtain the completed interpretation. ? Workstation ID: [id number] Narrative 05/01/2024 3:24 PM EST EXAMINATION: MRI THORACIC SPINE WO CONTRAST TECHNIQUE: Multiplanar and multisequence MR imaging of thoracic spine performed without intravenous contrast administration Sequences obtained include, Sagittal plane: T1, T2 and STIR Axial plane: T2. CLINICAL INFORMATION: 48-year-old female with juvenile idiopathic thoracolumbar scoliosis. ??Please evaluate. COMPARISON: Scoliosis radiograph from 03/07/2024 FINDINGS: CERVICAL SPINE The localizer sequence demonstrates no significant degenerative changes of the cervical spine. THORACIC SPINE The examination of the thoracic spine is limited due to the patient's severe thoracolumbar scoliosis. There is marked scoliosis of the mid thoracic spine convex to the right and the lower thoracic and upper lumbar spine convex to the left. ??Allowing for the scoliosis, the lumbar and sacral vertebral bodies otherwise demonstrate relatively normal alignment. The visualized thoracic spinal cord appear normal in size, contour and signal intensity and appears to terminate at the L1 level. ??No cord signal abnormality is visualized. No large thoracic disc herniation is visualized. ??The neural foramina appear to be grossly patent. No paraspinal mass lesion is visualized in the thoracic region. Resulting Agency Comment [id number] Procedure Note Ramu Carnes MD - 05/01/2024 EXAMINATION: MRI THORACIC SPINE WO CONTRAST TECHNIQUE: Multiplanar and multisequence MR imaging of thoracic spine performedwithout intravenous contrast administration Sequences obtained include, Sagittal plane: T1, T2 and STIR Axial plane: T2. CLINICAL INFORMATION: 48-year-old female with juvenile idiopathic thoracolumbar scoliosis.Please evaluate. COMPARISON: Scoliosis radiograph from 03/07/2024 FINDINGS: CERVICAL SPINE The localizer sequence demonstrates no significant degenerative changes ofthe cervical spine. THORACIC SPINE The examination of the thoracic spine is limited due to the patient'ssevere thoracolumbar scoliosis. There is marked scoliosis of the mid thoracic spine convex to the rightand the lower thoracic and upper lumbar spine convex to the left.Allowing for the scoliosis, the lumbar and sacral vertebral bodiesotherwise demonstrate relatively normal alignment. The visualized thoracic spinal cord appear normal in size, contour andsignal intensity and appears to terminate at the L1 level. No cord signalabnormality is visualized. No large thoracic disc herniation is visualized. The neural foraminaappear to be grossly patent. No paraspinal mass lesion is visualized in the thoracic region. IMPRESSION: IMPRESSION: 1. The examination of the thoracic spine is limited due to the patient'ssevere thoracolumbar scoliosis. 2. There is marked scoliosis of the midthoracic spine convex to the rightand the lower thoracic spine and upper lumbar spine convex to the left.Other than the scoliosis, the lumbar and sacral vertebral bodiesdemonstrate relatively normal alignment. No bony destructive lesions areidentified within the thoracic spine. 3. The thoracic spinal cord appears normal in size, contour and signalintensity and terminates at L1 level. 4. No significant thoracic disc herniation is identified. If this radiology report contains a blank impression section, it is anincomplete radiology report. Please contact the interpreting radiologistor applicable radiology division as soon as possible to obtain thecompleted interpretation. Workstation ID: [id number] [facility] MRI PROCEDURES Final Resul t * MRI Lumbar Spine WO Contrast (04/27/2024 5:25 PM EST) Anatomical Region Laterality Modality Spine, L-spine Magnetic Resonan ce 04/27/2024 5:05 PM EST Impressions 05/01/2024 2:34 PM EST 1. ??There is marked scoliosis of the upper and mid lumbar spine convex to the left. ??Evaluation of the lumbar spine is somewhat limited due to the scoliosis. 2. ??The lumbar and sacral vertebral bodies otherwise demonstrate reasonably good alignment. 3. ??There is a mild to moderate left lateral disc herniation at the L4-5 level which compresses the inferior left L4-5 neural foramen. ??There is also mild to moderate degenerative change in the facet joints at this level. 4. ??There is a mild to moderate right and left lateral disc herniations at the L2-3 level which compresses the inferior right and left L2-3 neural foramen. 5. ??There is a mild right lateral disc herniation at the L1-2 level compressing the inferior right L1-2 neural foramen. 6. ??There is a mild to moderate central and lateral bulging disc at the L3-4 level causing mild compression of the thecal sac. ??There is mild to moderate degenerative change within the facet joints. ?? If this radiology report contains a blank impression section, it is an incomplete radiology report. ??Please contact the interpreting radiologist or applicable radiology division as soon as possible to obtain the completed interpretation. ? Workstation ID: [id number] Narrative 05/01/2024 2:34 PM EST EXAMINATION: MRI of lumbar spine without contrast TECHNIQUE: Multiplanar and multisequence MR imaging of lumbar spine performed without intravenous contrast administration. Sequences obtained include, Sagittal plane: T1, T2 and STIR Axial plane: T1 and T2 at selected levels INDICATION: 48-year-old female with juvenile idiopathic thoracolumbar scoliosis. ??Please evaluate. COMPARISON: Lumbar radiograph from 11/23/2023 FINDINGS: Evaluation of the lumbar spine is limited due to the marked scoliosis. There is marked scoliosis of the upper and mid lumbar spine convex to the left. ??Otherwise, the lumbar and sacral vertebral bodies appear to demonstrate relatively normal alignment without evidence of a spondylolisthesis or spondylolysis. The conus appear normal in size, contour and signal intensity and terminates at around the L1 level. There appears to be degeneration of the L2-3 and L4-5 intervertebral discs which demonstrate decreased signal on the T2-weighted images. T12-L1: No significant disc herniation or foraminal narrowing. L1-2: Mild right lateral disc herniation which appears to compress the inferior right L1-2 neural foramen. L2-3: There are mild right and left-sided disc protrusions which compress the inferior right and left L2-3 neural foramen. ??There is mild to moderate degenerative change in the facet joints. L3-4: Mild central and lateral bulging disc causing mild compression of the thecal sac. ??There is mild to moderate degenerative change in the facet joints. L4-5: There is a mild to moderate left lateral disc herniation which compresses the inferior left L4-5 neural foramen. ??Mild degenerative change in the facet joints. L5-S1 1: No significant disc herniation or foraminal narrowing. ??Mild degenerative change in the facet joints. No paraspinal mass lesion is identified. Resulting Agency Comment [id number] Procedure Note Ramu Carnes MD - 05/01/2024 EXAMINATION: MRI of lumbar spine without contrast TECHNIQUE: Multiplanar and multisequence MR imaging of lumbar spine performed withoutintravenous contrast administration. Sequences obtained include, Sagittal plane: T1, T2 and STIR Axial plane: T1 and T2 at selected levels INDICATION: 48-year-old female with juvenile idiopathic thoracolumbarscoliosis. Please evaluate. COMPARISON: Lumbar radiograph from 11/23/2023 FINDINGS: Evaluation of the lumbar spine is limited due to the marked scoliosis. There is marked scoliosis of the upper and mid lumbar spine convex to theleft. Otherwise, the lumbar and sacral vertebral bodies appear todemonstrate relatively normal alignment without evidence of aspondylolisthesis or spondylolysis. The conus appear normal in size, contour and signal intensity andterminates at around the L1 level. There appears to be degeneration of the L2-3 and L4-5 intervertebral discswhich demonstrate decreased signal on the T2-weighted images. T12-L1: No significant disc herniation or foraminal narrowing. L1-2: Mild right lateral disc herniation which appears to compress theinferior right L1-2 neural foramen. L2-3: There are mild right and left-sided disc protrusions which compressthe inferior right and left L2-3 neural foramen. There is mild tomoderate degenerative change in the facet joints. L3-4: Mild central and lateral bulging disc causing mild compression ofthe thecal sac. There is mild to moderate degenerative change in thefacet joints. L4-5: There is a mild to moderate left lateral disc herniation whichcompresses the inferior left L4-5 neural foramen. Mild degenerativechange in the facet joints. L5-S1 1: No significant disc herniation or foraminal narrowing. Milddegenerative change in the facet joints. No paraspinal mass lesion is identified. IMPRESSION: 1. There is marked scoliosis of the upper and mid lumbar spine convex tothe left. Evaluation of the lumbar spine is somewhat limited due to thescoliosis. 2. The lumbar and sacral vertebral bodies otherwise demonstratereasonably good alignment. 3. There is a mild to moderate left lateral disc herniation at the L4-5level which compresses the inferior left L4-5 neural foramen. There isalso mild to moderate degenerative change in the facet joints at thislevel. 4. There is a mild to moderate right and left lateral disc herniations atthe L2- 3 level which compresses the inferior right and left L2-3 neuralforamen. 5. There is a mild right lateral disc herniation at the L1-2 levelcompressing the inferior right L1-2 neural foramen. 6. There is a mild to moderate central and lateral bulging disc at theL3-4 level causing mild compression of the thecal sac. There is mild tomoderate degenerative change within the facet joints. If this radiology report contains a blank impression section, it is anincomplete radiology report. Please contact the interpreting radiologistor applicable radiology division as soon as possible to obtain thecompleted interpretation. Workstation ID: [id number] [facility] MRI PROCEDURES Final Resul t * X-Ray Scoliosis 2 Views (03/07/2024 3:14 PM EST) Anatomical Region Laterality Modality Spine Computed Radiogr aphy 03/08/2024 5:50 PM EST Impressions 03/08/2024 5:53 PM EST FINDINGS/IMPRESSION: Reverse S-shaped scoliosis of the thoracolumbar spine with moderate to severe dextroscoliosis of the mid and lower thoracic spine measuring 47 degrees and severe levoscoliosis of the lumbar spine measuring 56 degrees. ??Multilevel degenerative disc and facet disease in the thoracolumbar spine. Large [id number] imaging technique limits assessment of fine osseous and soft tissue detail. Images are provided for biometric measurement. If this radiology report contains a blank impression section, it is an incomplete radiology report. ??Please contact the interpreting radiologist or applicable radiology division as soon as possible to obtain the completed interpretation. ? Workstation ID: [id number] Narrative 03/08/2024 5:53 PM EST COMPARISON: 11/23/2023 ?? Resulting Agency Comment [id number] Procedure Note Arjun Mahmood MD - 03/08/2024 COMPARISON: 11/23/2023 IMPRESSION: FINDINGS/IMPRESSION: Reverse S-shaped scoliosis of the thoracolumbar spine with moderate tosevere dextroscoliosis of the mid and lower thoracic spine measuring 47degrees and severe levoscoliosis of the lumbar spine measuring 56 degrees.Multilevel degenerative disc and facet disease in the thoracolumbarspine. Large liipv-np-cjpk imaging technique limits assessment of fine osseousand soft tissue detail. Images are provided for biometric measurement. If this radiology report contains a blank impression section, it is anincomplete radiology report. Please contact the interpreting radiologistor applicable radiology division as soon as possible to obtain thecompleted interpretation. Workstation ID: [id number] [facility] XR PROCEDURES Final Result from Last 3 Months Insurance [employer] Care Teams Clinical Quality Assurance Specialist Relationship Specialty Start Date End Date Ness Levi [address] [place] [id number] PCP - General Physician Business Excellence Leader 02/07/24
--- OUTSIDE RECORDS SUMMARY | 2024-05-29 15:32 | XMS_ITS | Data Portability ---
Author Organization [facility], [facility] Address [address] [place] [id number] Assessment Encounter Date Assessment Date Assessment LastModified by Organization Details LastModified Time 04/23/2015 04/23/2015 39 y/o, Denies VB, LOF, Ctxs, SAB signs. Denies any signs of depression.? ? ? PMHx: MS since 2007- on medication till . Also stop antidepression since . Consulted with her neurologist was told it's fine to stop her medication. O: See flowsheet A: 39 y/o, , IUP at 5w6d, via sonogram at office? ? ? P: pap pending will get results from OB office ? Reviewed danger signs, SAB s/s, emergency call system. ? Weight gain, diet, exercise guideline given ?pt f/u neurologist 04/2015? Discussed pt's requirements at [facility], pediatricians, BF classes, pediatric physician ? RTC in 4 weeks and PRN concerns [email or web address] Not available 04/25/2015 21:46:32 03/04/2016 03/04/2016 Sarah is a 40y o here for NOB with . Planned very happy. Missed AB last year, expectant management did not pass POC for 5 months. Return of menses in October. Reports being seen by Nuvia Yap MD and [facility] for early 8 & 10 week ultrasounds and genetic screening. Received low risk female NIPT result today. History of depression and MS. Not currently medicated for MS but on Zoloft and Wellbutrin daily. Feels stable and in good mood. O: No heart tones auscultated with doppler but FHR and activity seen with handheld sono. A: 40yo 11 weeks by sure LMP. AMA Multiple sclerosis currently unmedicated Depression medicated P: Request missing records Patient reports NILM pap in Sept not repeated Oriented to care RTO 4 weeks or PRN [email or web address] Not available 03/04/2016 16:27:29 Plan of Treatment Reminders Order Date Submit Date Provider Last Modified By Organization Details Last Modified Time Details Appointments None recorded. Lab test, urine 2014 015 [email or web address] In-House Test, For Internal Use Only, Do Not Delete/merge, [id number] 6 21:46:32 urinalysis, dipstick 2015 016 In-House Test, For Internal Use Only, Do Not Delete/merge, [id number] 6 04:07:23 Referral chorionic villi sampling and genetic counseling - Pt has MS and was on medication for antidepress ion 2014 016 [email or web address] Man Wick MD [facility], [address], [place], [address], 6 15:58:36 Procedures None recorded. Surgeries None recorded. Imaging ultrasound, OB, trimester 1 2014 015 IVONNE Wick MD [facility], [address] [facility], [place], [address], 6 14:02:11 Medication Orders None recorded. Patient TargetsNo targets recorded. Patient Instructions Encounter Date Encounter Id Patient Instructions Last Modified By Organization Details Last Modified Time 03/04/2016 [id number] After Age 35: Care Instructions [id number] Not available 04/09/2016 04:07:20 Reason for Referral Chorionic Villi Sampling And Genetic Counseling for Advanced maternal age Pt has MS and was on medication for antidepression Referring Physician: Jocelyn García, [facility], Encounter Date: 04/23/2015 Results Created Date Observation Date Name Description Value Unit Range Abnormal Flag Note LastModifiedBy Organization Detail LastModifiedTime 03/04/20 16 03/04/2016 urina lysis , dipst ick Protein Negati ve Not Available In-House Te st For Internal Use Only, Do Not Delete/merge, [id number] 03/04/2016 15:15:00 03/04/20 16 03/04/2016 urina lysis , dipst ick Glucose Negati ve Not Available In-House Te st For Internal Use Only, Do Not Delete/merge, [id number] 03/04/2016 15:15:00 04/23/20 15 04/23/2015 pregn marilee test, urine HCG positi ve Not Available In-House Te st For Internal Use Only, Do Not Delete/merge, [id number] 04/23/2015 15:32:37 06/26/19 16 06/26/2015 beta- HCG, quant itati ve, serum or plasm a beta HCG 194 abnormal Not Available [facility] [address] [place] [address], [address], 07/06/2015 12:27:14 05/07/19 16 05/07/2015 ultra sound , OB, trime ster 1 No observ ation record ed. [facility] [address] [place] [address] [place], [address], 03/04/2016 16:18:18 06/12/19 16 06/12/2015 ultra sound , pelvi c trans abdom inal No observ ation record ed. [email or web address] Not Available 02/22 16:18:18 06/12/19 16 06/12/2015 ultra sound , pelvi c trans abdom inal No observ ation record ed. [email or web address] [facility] [address] [place], [address], 03/04/2016 16:18:18 06/16/19 16 06/12/2015 ultra sound , pelvi c trans abdom inal No observ ation record ed. [email or web address] Laura CNM [address] [place], [address], 03/04/2016 16:18:19 Result Notes None recorded. Problems Name Problem SNOMED Code Status Onset Date Resolution Date Notes Provider Name and Address Organization Details Recorded Time Multiple sclerosi s 24735317 Active 2007 on medicatio n but stop since . Due to MS she was also on Antidepre ssion medicatio n but her neurologi st states she can stop once she is . Jocelyn García null, [facility] 5 16:16:57 Missed miscarri age 09323259 Active Wen Kaiserkatherinsilvio null, [facility] 6 14:44:22 Complete miscarri age 954845914 Active Wen Laura null, [facility] 6 09:24:44 Pregnanc y 15578587 Completed 201508/08/2016 Summer Clayton null, [facility] 7 18:52:01 Problem Notes None recorded. Procedures Surgical History None recorded. Imaging Results Imaging Date Name Status LastModified by Organization Details LastModified Time 05/07/2015 ultrasound, OB, trimester 1 completed [email or web address] [facility] [address] [facility] [address] [address] [place], [address], 03/04/2016 16:18:18 06/12/2015 ultrasound, pelvic transabdominal completed [email or web address] Information not available 03/04/2016 16:18:18 06/12/2015 ultrasound, pelvic transabdominal completed [email or web address] [facility] [address] [place], [address], 03/04/2016 16:18:18 06/12/2015 ultrasound, pelvic transabdominal completed [email or web address] Wen Kaiserthea CN [address] [place], [address], 03/04/2016 16:18:19 Procedure Notes None recorded. Medical Equipment None Reported. Allergies No known drug allergies Medications Name Sig Start Date Stop Date Status Note LastModified by Organization Details LastModified Time Zoloft 15 mg tablet Take 1 tablet every day by oral route. active Not Available Not Available No t Available Wellbutrin XL 150 mg 24 hr tablet, extended release Take 1 tablet every day by oral route. active Not Available Not Available No t Available Vitals Date Recorded Body height Body mass index (BMI) Body weight Systolic blood pressure Diastolic blood pressure Provider Name and Address Organization Details Last Updated DateTime 04/23/2015 166.37 cm 26.1 kg/m2 86476.18 683 g 110 mm[Hg] 70 mm[Hg] Jennifer [facility] 5 15:32:37 Date Recorded Body height Body weight Body mass index (BMI) Systolic blood pressure Diastolic blood pressure Provider Name and Address Organization Details Last Updated DateTime 03/04/2016 166.37 cm 07917.96 394 g 26.5 kg/m2 110 mm[Hg] 70 mm[Hg] Brandi Mcfarland [facility] 6 15:25:30 Social History Question Answer Notes LastModified by Organizat ion Details LastModified Time Tobacco Smoking Status Former Smoker Jennifer Flowers [facility] 04/23/2015 15:37:36 What Is Your Level Of Alcohol Consumption? None Information not available 04/23/2015 If You Are , What Was Your Level Of Alcohol Consumption Prior To ? Moderate Information not available 03/04/2016 How Many Years Have You Consumed Alcohol? 0 Information not available 04/23/2015 Is Blood Transfusion Acceptable In An Emergency? Yes Information not available 04/23/2015 What Type Of Diet Are You Following? REGULAR Non-dairy, Non-gluten, Sometimes Gluten Information not available 04/23/2015 Which Illicit Or Recreational Drugs Have You Used? 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 0 Information not available 04/23/2015 Discuss Mother's Feeding Plan 03/04/2016 Breast [email or web address] Information not available 03/04/2016 If , Offer Positive Reinforcement 03/04/2016 Information not available 03/04/2016 Performs Monthly Self-breast Exam? No Information no t available 04/23/2015 How Much Tobacco Do You Smoke? No Information not available 04/23/2015 Smoking Pre- No Information not available 04/23/2015 General Stress Level Medium [email or web address] Information not available 03/04/2016 How Many Years Have You Smoked Tobacco? 11 Information not available 03/04/2016 Sex: Unknown Functional Status Question Answer Note LastModified by Organization D etails LastModified Time What is your exercise level? Moderate [email or web address] Information not available 03/04/2016 Mental Status None recorded. Family History Nothing Reported. Medical History Condition Response Anesthesia complications N High Blood Pressure N Depression Y Defects or Inherited Disease N Breast Problem N Headaches/Migraines N Anxiety Disorder Y Arthritis N Infertility N Cancer N Varicosities N Respiratory Problems N Heart Conditions N Kidney or Bladder Problems N GI Problems N Anemia N Thyroid or Endocrine Problems N Psychiatric Illness N Diabetes N Trauma/Violence N Hepatitis N Gynecological History Statement/Question Response Abnormal Pap No Flow Moderate Date of LMP 12/18/2015 No STIs/STDs HPV Vaccine N 5 Most Recent Mammogram Age at Menarche 14 Current Control Method If Post Menopausal, Age at Menopause 28 Sexually Active? Y Menses Monthly Y Date of Last Pap Smear Sexual Problems? N LMP Definite Desired Control Method N/A Obstetrics History GPAL:G 2 P 0 0 1 0 Type Value Spontaneous 1 Total 2 Past Encounters Encounter ID Performer Location Encounter Start Date Encounter Closed Date Diagnosis/Indication Diagnosis SNOMED-CT Code Diagnosis ICD10 Code Diagnosis Note [id number] Jocelyn García [facility] [address] [place] [id number] 04/23/2015 15:26:11 04/23/2015 16:13:18 Routine care 428314626 Z34.91 Advanced m aternal age 706718375 O09.899 [id number] Cassie Chen [facility] [address] [place] [address] 03/04/2016 15:01:05 03/07/2016 11:34:17 Routine care 045402858 Z34.81 Health Concerns Section Related Observation LastModified by Organization Detai ls LastModified Time None Recorded Concern Status LastModified by Organization Details LastModified Time None Recorded Advance Directives Directive None Recorded Payers Encounter Date Sequence Insurance Name Policy Number Policy Leiva Covered Member ID Leiva Member ID Guarantor Name 04/23/2015 1 [facility] [employer] (HMO) Sarah Anguiano [id number] Sarah Anguiano 03/04/2016 1 [id number] Sarah Anguiano [id number] Sarah Anguiano OBGyn Episode Ob Episode Information Episode Created Date Number of Fetuses Patient Bloodtype Patient rh Status Prepregnancy Weight lbs Domestic Partner Domestic Partner Phone Father Name Extension Division Director Status 03/04/20 16 1 O Positive Rich whitman CLOSED Fetus Data First Name Last Name Admitted to NICU Weight (g) Sex Living Outcome Pediatric Complications Fetus ID Race Codes Race Delivery Type [id number] Rajesh Calculation Initial Rajesh Date Initial Exam Date Initial Exam Provider Initial Ultrasound Date Last Menstrual Period Date Ultra Sound Weeks Gestation 09/23/2016 03/04/2016 12/18/2015 0 Eighteen To Twenty Week Rajesh Update Ultra Sound Date Fundal Height At Umbil Quickening Date Ultra Sound Latest Weeks Gestation Final Rajesh Confirmed By Final Rajesh Confirmed Date Final Rajesh Date Ultra Sound Latest Days Gestation 0 09/24/19 17 0 Pre-keshav Flowsheet Flowsheet Date 03/04/2016 Johnson Score Blood Edema Fundus Height Fundus Units Glucose Ketones Leukocytes Nitrite Labor Signs Protein Cervic Dilation Cervic Effacement Cervic Station none 11 cm none none neg Type Weight in lbs Pre/Post Dialysis Refused 162.910127814597 BP Diastolic BP Location Tested BP Systolic BP Type 70 110 sitting Fetus Heart Rate Present A Absent Fetus Movement A No Comments movement and heart act ivity visible with sono. Menstrual History Last Menstrual Date Menses Monthly On Bcp Conception Prior Menses Frequency Hcg Plus Date Menarche Onset Age 0812/18/2015 true false 28 14 Genetic Screening And Infection History Question Response Note Patient's Age Will Be 35 Yea rs Or Older At Estimated Date of Delivery true Thalassemia (Romanian, Turkmen, Mediterranean, Or Background): MCV < 80 false Neural Tube Defect (Meningom yelocele, Spina Bifida, Or Anencephaly) false Congenital Heart Defect false Down Syndrome true First cousins so n has DS Lalit-Sachs (eg, Gnosticism, Cajun, Slovak-[place]) f alse Goyo Disease false Sickle Cell Disease Or Trait () false Hemophilia Or Other Blood Disorders false Muscular Dystrophy false Cystic Fibrosis false Tucker's Chorea false Mental Retardation/Autism true Nephew has autism If Yes, Was Person Tested For Fragile X? false Other Inherited Genetic Or Chromosomal Disorder false Maternal Metabolic Disorder (eg, Type 1 Diabetes, PKU) false Patient Or Baby's Father Had A Child With Defects Not Listed Above false Recurrent Loss, Or A Stillbirth false Medications (including Suppl ements, Vitamins, Herbs, OTC Drugs), Illicit/Recreational Drugs, Alcohol true If Yes, Agent(s) And Strength/Dosage false Any Other Genetic History false Live With Someone With TB Or Exposed To TB false Patient Or Partner Has History Of Genital Herpes true First outbreak age 2009 Rash Or Viral Illness Since Last Menstrual Perio d false History Of STD, Gonorrhea, Chlamydia, HPV, Syphi lis false Other false Delivery Information Delivery Date Delivery Type Labor Anesthesia Weeks Gestation Incision Type Labor Labor Length Hrs Delivered By Post Complications Tubal Sterilization Discharge Date Comments Discharge Information Feeding Method Contraceptive Method Maternal HG B and HCT Levels Ob Episode Information Episode Created Date Number of Fetuses Patient Bloodtype Patient rh Status Prepregnancy Weight lbs Domestic Partner Domestic Partner Phone Father Name Extension Division Director Status 03/04/20 16 1 CLOSED Fetus Data First Name Last Name Admitted to NICU Weight (g) Sex Living Outcome Pediatric Complications Fetus ID Race Codes Race Delivery Type , Spontane ous [id number] Rajesh Calculation Initial Rajesh Date Initial Exam Date Initial Exam Provider Initial Ultrasound Date Last Menstrual Period Date Ultra Sound Weeks Gestation 0 Eighteen To Twenty Week Rajesh Update Ultra Sound Date Fundal Height At Umbil Quickening Date Ultra Sound Latest Weeks Gestation Final Rajesh Confirmed By Final Rajesh Confirmed Date Final Rajesh Date Ultra Sound Latest Days Gestation 0 0 Menstrual History Last Menstrual Date Menses Monthly On Bcp Conception Prior Menses Frequency Hcg Plus Date Menarche Onset Age Delivery Information Delivery Date Delivery Type Labor Anesthesia Weeks Gestation Incision Type Labor Labor Length Hrs Delivered By Post Complications Tubal Sterilization Discharge Date Comments 6 7 Missed AB. Took 4-5 months to pass. Discharge Information Feeding Method Contraceptive Method Maternal HG B and HCT Levels
--- OUTSIDE RECORDS SUMMARY | 2024-05-29 15:32 | XMS_ITS | Clinical Summary ---
Author Organization [facility] Address [address] [place] [address] Care Team Providers Care Sheeter Machine Operator Name Role Phone Ness Levi Primary Care Provider [phone] Allergies No known active allergies Medications buPROPion XL (WELLBUTRIN XL) 300 mg tablet Take 300 mg by mouth once a day. Active escitalopram (LEXAPRO) 20 mg tablet 8 Active ipratropium (ATROVENT) 0.03% nasal spray PLEASE SEE ATTACHED FOR DETAILED DIRECTIONS 4 Active methylphenidate ER 36 mg tablet 4 Active ocrelizumab (OCREVUS INTRAVENOU) 1 Active Active Problems No known active problems Encounters Date Type Department Care Team Description 05/01/2024 3:15 PM EST Office Visit [facility] [address] [place] [address] Rhett Johnson MD Idiopathic scoliosis in adult patient (Primary Dx); Post-menopausal 03/07/2024 2:45 PM EST - 03/07/2024 11:59 PM EST Hospital Encounter [facility] XRay [address] [place] [address] Juvenile idiopathic scoliosis of thoracolumbar region Discharge Disposition: Home or Self Care () 03/07/2024 2:00 PM EST Office Visit [facility] [address] [place] [address] Merry Friend PA Juvenile idiopathic scoliosis of thoracolumbar region (Primary Dx) from Last 3 Months Social History Tobacco Use Types Packs/Day Years [...] Info) Description 10/30/2024 11:00 AM EDT Follow-Up [facility] [address] [place] [id number] Rhett Johnson MD [address] [place] [address] Health Maintenance Due Date Last Done Comments Cervical Cancer Screening 1975 Cologuard 1975 Colon Cancer Screening 1975 Colonoscopy 1975 FOBT / Fit Test 1975 HIV Screening 1975 HPV and Pap Smear 1975 Hepatitis C Screening 1975 Pap Smear 1975 Sigmoidoscopy 1975 Hepatitis B Vaccines (1 of 3 - 19+ 3-dose series) 1994 Mammogram 2015 Alcohol/Substance Use Screening 04/24/2024 Depression Screening and Follow-Up 04/24/2024 Social Drivers of Health Annual Screening 04/24/2024 DTaP,Tdap,and Td Vaccines (2 - Td or Tdap) 07/10/2031 07/09/2021 RSV Vaccine (60+ years old and patients) (1 - 1-dose 75+ series) 2050 COVID-19 Vaccine Completed 01/20/2024, , 04/22/2022, Additional history exists Influenza Vaccine Completed 01/20/2024, , 04/22/2022, Additional history exists Pneumococcal Vaccine: Pediatric (0-5 Years) and At-Risk Patients (6-64 Years) Aged Out No longer eligible based on patient's age to complete this topic Procedures * Due to [place] [employer] law, this organization might not be sharing [...] Last 3 Months Results * Due to [place] [employer] law, this organization might not be sharing [...] obtain the completed interpretation. ? Workstation ID: [id number] Narrative 05/01/2024 3:24 PM EST EXAMINATION: MRI [...] in the thoracic region. Resulting Agency Comment [id number] Procedure Note Ramu Carnes MD - 05/01/2024 [...] possible to obtain thecompleted interpretation. Workstation ID: [id number] [facility] PROCEDURES Final Resul t * MRI [...] obtain the completed interpretation. ? Workstation ID: [id number] Narrative 05/01/2024 2:34 PM EST EXAMINATION: MRI [...] mass lesion is identified. Resulting Agency Comment [id number] Procedure Note Ramu Carnes MD - 05/01/2024 [...] possible to obtain thecompleted interpretation. Workstation ID: [id number] [facility] PROCED[facility] Final Resul t * X-Ray [...] facet disease in the thoracolumbar spine. Large jvcek-op-tfhx imaging technique limits assessment of fine osseous and soft tissue detail. Images are provided for biometric measurement. If this radiology report contains a blank impression section, it is an incomplete radiology report. ??Please contact the interpreting radiologist or applicable radiology division as soon as possible to obtain the completed interpretation. ? Workstation ID: [id number] Narrative 03/08/2024 5:53 PM EST COMPARISON: 11/23/2023 ?? Resulting Agency Comment [id number] Procedure Note Arjun Mahmood MD - 03/08/2024 COMPARISON: 11/23/2023 IMPRESSION: FINDINGS/IMPRESSION: Reverse S-shaped scoliosis of the thoracolumbar spine with moderate tosevere dextroscoliosis of the mid and lower thoracic spine measuring 47degrees and severe levoscoliosis of the lumbar spine measuring 56 degrees.Multilevel degenerative disc and facet disease in the thoracolumbarspine. Large vintn-wd-hzjw imaging technique limits assessment of fine osseousand soft tissue detail. Images are provided for biometric measurement. If this radiology report contains a blank impression section, it is anincomplete radiology report. Please contact the interpreting radiologistor applicable radiology division as soon as possible to obtain thecompleted interpretation. Workstation ID: [id number] [facility] X[facility] PROCEDURES Final Result from Last 3 Months Insurance HNE Care Teams Sheeter Machine Operator Relationship Specialty Start Date End Date Vu Leviha [address] [place] [address] PCP - General Physician Fitness/Wellness Director 02/07/24
--- OUTSIDE RECORDS SUMMARY | 2024-05-29 15:32 | XMS_ITS | Encounter Summary ---
Author Organization [facility] Address [address] [place] [address] Care Team Providers Care Crusher And Blender Operator Name Role Phone Ness Levi Primary Care Provider [phone] Reason for Referral * Diagnostic Imaging (Routine) - Pending Review Specialty Diagnoses / Procedures Referred By Contac t Referred To Contact Diagnoses Post-menopausal Procedures DXA Axial and Peripheral and TBS Rhett Johnson MD [address] [place] [address] Phone: tel: fax: Referral ID Status Reason Start Date Expiration Date V isits Requested Visits Authorized [id number] Pending Review 05/01/2024 10/31/2025 1 1 * Physical Therapy (Routine) - Pending Review Specialty Diagnoses / Procedures Referred By Contac t Referred To Contact Physical Therapy Diagnoses Idiopathic scoliosis in adult patient Rhett Johnson MD [address] [place] [address] Phone: tel: fax: Referral ID Status Reason Start Date Expiration Date Visits Requested Visits Authorized [id number] Pending Review Specialty Services Required 05/01/2024 10/31/2025 6 6 Reason for Visit * Reason Comments Pain New Patient Encounter Details Date Type Department Care Team (Late st Contact Info) Description 05/01/2024 3:15 PM EST Office Visit [facility] B [address] [place] [id number] Rhett Johnson MD [address] [place] [phone] Idiopathic scoliosis in adult patient (Primary Dx); Post-menopausal Social History Tobacco Use Types Packs/Day Years Used Date Smoking Tobacco: Former Cigarettes Smokeless Tobacco: Never Alcohol Use Standard Drinks/Week Comments Not Currently 0 (1 standard drink = 0.6 oz pur e alcohol) Comments Unknown Sex and Gender Information Value Date Recorded Sex Assigned at Female 02/07/2024 5:04 PM EDT Legal Sex Female 10:47 AM EDT Gender Identity Female 03/01/2024 4:37 PM EST Sexual Orientation Choose not to disclose 2023 4:37 PM EST documented as of this encounter Last Filed Vital Signs Vital Sign Reading Time Taken Comments Blood Pressure - - Pulse - - Temperature - - Respiratory Rate - - Oxygen Saturation - - Inhaled Oxygen Concentration - - Weight 63.9 kg (140 lb 14 oz) 05/01/2024 3:49 PM EST Height 158.2 cm (5' 2.3 ) 05/01/2024 3:49 PM EST Body Mass Index 25.52 05/01/2024 3:49 PM EST documented in this encounter Plan of Treatment Upcoming Encounters Date Type Department Care Team (Late st Contact Info) Description 10/30/2024 11:00 AM EDT Follow-Up [facility] B [address] [place] [address] Rhett Johnson MD [address] [place] [address] Scheduled Orders Name Type Priority Associated Diagnoses Orde r Schedule DXA Axial and Peripheral and TBS Imaging Routine Post-menopausal Ordered: 05/01/2024 Scheduled Referrals Name Type Priority Associated Diagnoses Order Schedule Ambulatory referral to Physical Therapy Outpatient Referral Routine Idiopathic scoliosis in adult patient Expected: 05/01/2024, Expires: 10/29/2024 documented as of this encounter Visit Diagnoses Diagnosis Idiopathic scoliosis in adult patient- Primary Post-menopausal Asymptomatic postmenopausal status (age-related) (natural) documented in this encounter Care Teams Crusher And Blender Operator Relationship Specialty Start Date End Date Ness Levi [address] [place] [address] PCP - General Physician Requirements Engineer 02/07/24 documented as of this encounter
== END 2024-05-29 15:35 | disposition home or self-care (01) ==
PROVIDERS: PCP Physician Assistant Medical; Visit Provider Nurse Practitioner Family
DX: Z01.818 Encounter for other preprocedural examination (principal); Z12.11 Encounter for screening for malignant neoplasm of colon; R74.8 Abnormal levels of other serum enzymes
CPT/HCPCS: 99202

== ENCOUNTER → 2024-05-29 14:19 | Outpatient (BNVA) | payer OTHER, SELFPAY | PROVIDERS: PCP Physician Assistant Medical; Visit Provider Nurse Practitioner Family ==

== ENCOUNTER 2024-05-29 15:32 | Outpatient (REF) | payer OTHER, SELFPAY ==
--- NOTE | ~2024-05-29 | XR_ITS ---
EXAMINATION: XR CHEST CLINICAL INFORMATION: R06.00 - Dyspnea, unspecified COMPARISON: None available. TECHNIQUE: 2 views of the chest were obtained. FINDINGS: The lungs are expanded and clear. The heart size and pulmonary vascularity is normal. There is a moderate size retrocardiac hiatal hernia. There is moderate dextroscoliosis of mid to lower dorsal spine. No aggressive lytic or sclerotic process seen. XR/XR chest 2V IMPRESSION: Moderate size hiatal hernia. No acute lung parenchymal process seen. Electronically signed by: Rey Saucedo MD 05/30/2024 07:41 AM EST
--- OUTSIDE RECORDS SUMMARY | 2024-05-29 16:23 | XMS_ITS | Encounter Summary ---
Author Organization [facility] Address [address] [place] [address] Care Team Providers Care Finishing Pan Operator Name Role Phone Ness Levi Primary Care Provider [phone] Reason for Referral * Diagnostic Imaging (Routine) - Pending Review Specialty Diagnoses / Procedures Referred By Contac t Referred To Contact Diagnoses Post-menopausal Procedures DXA Axial and Peripheral and TBS Rhett Johnson MD [address] [place] [address] Phone: tel: fax: Referral ID Status Reason Start Date Expiration Date V isits Requested Visits Authorized [id number] Pending Review 05/01/2024 10/31/2025 1 1 * Physical Therapy (Routine) - Pending Review Specialty Diagnoses / Procedures Referred By Contac t Referred To Contact Physical Therapy Diagnoses Idiopathic scoliosis in adult patient Rhett Johnson MD [address] [place] [address] Phone: tel: fax: Referral ID Status Reason Start Date Expiration Date Visits Requested Visits Authorized [id number] Pending Review Specialty Services Required 05/01/2024 10/31/2025 6 6 Reason for Visit * Reason Comments Pain New Patient Encounter Details Date Type Department Care Team (Late st Contact Info) Description 05/01/2024 3:15 PM EST Office Visit [facility] B [address] [place] [phone] Rhett Johnson MD [address] [place] [address] Idiopathic scoliosis in adult patient (Primary Dx); [...] Info) Description 10/30/2024 11:00 AM EDT Follow-Up [facility] B [address] [place] [address] Rhett Johnson MD [address] [place] [address] Scheduled Orders Name Type Priority Associated Diagnoses [...] (natural) documented in this encounter Care Teams Finishing Pan Operator Relationship Specialty Start Date End Date Ness Levi [address] [place] [address] PCP - General Physician Parts Sales Counterperson 02/07/24 documented as of this encounter
--- OUTSIDE RECORDS SUMMARY | 2024-05-29 16:24 | XMS_ITS | Referral Summary ---
Author Organization [facility] Address [address] [place] [address] Care Team Providers Care Computing Architect Name Role Phone Ness Levi Primary Care Provider [phone] Encounters Date Type Department Care Team Description 05/01/2024 3:15 PM EST Office Visit [facility] B [address] [place] [address] Rhett Johnson MD Idiopathic scoliosis in adult patient (Primary Dx); Post-menopausal 03/07/2024 2:45 PM EST - 03/07/2024 11:59 PM EST Hospital Encounter [facility] XRay [address] [place] [address] Juvenile idiopathic scoliosis of thoracolumbar region Discharge Disposition: Home or Self Care () 03/07/2024 2:00 PM EST Office Visit [facility] B [address] [place] [address] Merry Friend PA Juvenile idiopathic scoliosis of [...] Info) Description 10/30/2024 11:00 AM EDT Follow-Up [facility] [address] [place] [address] Rhett Johnson MD [address] [place] [address] Procedures * Due to [place] [employer] law, this organization might not be sharing [...] Last 3 Months Results * Due to [place] state law, this organization might not be [...] obtain the completed interpretation. ? Workstation ID: [id number] Narrative 05/01/2024 3:24 PM EST EXAMINATION: MRI [...] in the thoracic region. Resulting Agency Comment [id number] Procedure Note Ramu Carnes MD - 05/01/2024 [...] possible to obtain thecompleted interpretation. Workstation ID: [id number] [facility] PROCEDURES Final Resul [...] obtain the completed interpretation. ? Workstation ID: [id number] Narrative 05/01/2024 2:34 PM EST EXAMINATION: MRI [...] mass lesion is identified. Resulting Agency Comment [id number] Procedure Note Ramu Carnes MD - 05/01/2024 [...] possible to obtain thecompleted interpretation. Workstation ID: [id number] [facility] PROCEDURES Final Resul [...] facet disease in the thoracolumbar spine. Large kamrs-tn-kkpw imaging technique limits assessment of fine osseous and soft tissue detail. Images are provided for biometric measurement. If this radiology report contains a blank impression section, it is an incomplete radiology report. ??Please contact the interpreting radiologist or applicable radiology division as soon as possible to obtain the completed interpretation. ? Workstation ID: [id number] Narrative 03/08/2024 5:53 PM EST COMPARISON: 11/23/2023 ?? Resulting Agency Comment [id number] Procedure Note Arjun Mahmood MD - 03/08/2024 COMPARISON: 11/23/2023 IMPRESSION: FINDINGS/IMPRESSION: Reverse S-shaped scoliosis of the thoracolumbar spine with moderate tosevere dextroscoliosis of the mid and lower thoracic spine measuring 47degrees and severe levoscoliosis of the lumbar spine measuring 56 degrees.Multilevel degenerative disc and facet disease in the thoracolumbarspine. Large vtmnm-sb-bhfy imaging technique limits assessment of fine osseousand soft tissue detail. Images are provided for biometric measurement. If this radiology report contains a blank impression section, it is anincomplete radiology report. Please contact the interpreting radiologistor applicable radiology division as soon as possible to obtain thecompleted interpretation. Workstation ID: [id number] [facility] PROCEDURES Final Result from Last 3 Months Insurance [employer] Care Teams Computing Architect Relationship Specialty Start Date End Date Ness Levi [address] [place] [id number] PCP - General Physician Batcher Operator 02/07/24
--- OUTSIDE RECORDS SUMMARY | 2024-05-29 16:24 | XMS_ITS | Clinical Summary ---
Author Organization [facility] Address [address] [place] [address] Care Team Providers Care Shoemaking Cutter Name Role Phone Ness Levi Primary Care Provider [phone] Allergies No known active allergies Medications buPROPion [...] Description 05/01/2024 3:15 PM EST Office Visit [facility] [address] [place] [address] Rhett Johnson MD Idiopathic scoliosis in adult patient (Primary Dx); Post-menopausal 03/07/2024 2:45 PM EST - 03/07/2024 11:59 PM EST Hospital Encounter [facility] XRay [address] [place] [address] Juvenile idiopathic scoliosis of thoracolumbar region Discharge Disposition: Home or Self Care () 03/07/2024 2:00 PM EST Office Visit [facility] B [address] [place] [address] Merry Friend PA Juvenile idiopathic scoliosis of [...] Info) Description 10/30/2024 11:00 AM EDT Follow-Up [facility] B [address] [place] [address] Rhett Johnson MD [address] [place] [address] Health Maintenance Due Date Last Done Comments [...] complete this topic Procedures * Due to [place] [employer] law, this organization might not be sharing [...] Last 3 Months Results * Due to [place] emb[employer] law, this organization might not be sharing [...] obtain the completed interpretation. ? Workstation ID: [id number] Narrative 05/01/2024 3:24 PM EST EXAMINATION: MRI [...] in the thoracic region. Resulting Agency Comment [id number] Procedure Note Ramu Carnes MD - 05/01/2024 [...] possible to obtain thecompleted interpretation. Workstation ID: [id number] [facility] PROCEDURES Final Resul t [...] obtain the completed interpretation. ? Workstation ID: [id number] Narrative 05/01/2024 2:34 PM EST EXAMINATION: MRI [...] mass lesion is identified. Resulting Agency Comment [id number] Procedure Note Ramu Carnes MD - 05/01/2024 [...] possible to obtain thecompleted interpretation. Workstation ID: [id number] [facility] PROCEDURES Final Resul [...] facet disease in the thoracolumbar spine. Large jhoxh-qg-tukb imaging technique limits assessment of fine osseous and soft tissue detail. Images are provided for biometric measurement. If this radiology report contains a blank impression section, it is an incomplete radiology report. ??Please contact the interpreting radiologist or applicable radiology division as soon as possible to obtain the completed interpretation. ? Workstation ID: [id number] Narrative 03/08/2024 5:53 PM EST COMPARISON: 11/23/2023 ?? Resulting Agency Comment [id number] Procedure Note Arjun Mahomod MD - 03/08/2024 COMPARISON: 11/23/2023 IMPRESSION: FINDINGS/IMPRESSION: Reverse S-shaped scoliosis of the thoracolumbar spine with moderate tosevere dextroscoliosis of the mid and lower thoracic spine measuring 47degrees and severe levoscoliosis of the lumbar spine measuring 56 degrees.Multilevel degenerative disc and facet disease in the thoracolumbarspine. Large nwvbg-yz-wahb imaging technique limits assessment of fine osseousand soft tissue detail. Images are provided for biometric measurement. If this radiology report contains a blank impression section, it is anincomplete radiology report. Please contact the interpreting radiologistor applicable radiology division as soon as possible to obtain thecompleted interpretation. Workstation ID: [id number] [facility] PROCEDURES Final Result from Last 3 Months Insurance [employer] Care Teams Shoemaking Cutter Relationship Specialty Start Date End Date Vu Leviha [address] [place] [id number] PCP - General Physician Early Childhood Director 02/07/24
[2024-05-29 17:42] LABS: Folate 14.1 ng/mL (> or = 4.0); Vitamin B12 > 2000 pg/mL (200-900)
[2024-06-02 17:33] LABS: Vitamin D 25-OH, D2 <4 ng/mL; Vitamin D 25-OH, D3 26 ng/mL; Vitamin D 25-OH, Total 26 ng/mL (30-100)
[2024-06-04 12:48] LABS: Mitochondrial Antibodies NEGATIVE (NEGATIVE)
== END 2024-05-29 15:33 | disposition home or self-care (01) ==
LOC: HO.XRAY 15:32
PROVIDERS: Absent Provider Nurse Practitioner Family; PCP Physician Assistant Medical; Visit Provider Nurse Practitioner Family
DX: R06.00 Dyspnea, unspecified (principal); R74.8 Abnormal levels of other serum enzymes; Z12.11 Encounter for screening for malignant neoplasm of colon
CPT/HCPCS: 36415; 71046; 82306; 82607; 82746; 86381

== ENCOUNTER → 2024-05-29 15:37 | Outpatient (BNV) | payer OTHER, SELFPAY | PROVIDERS: Absent Provider Nurse Practitioner Family; PCP Physician Assistant Medical; Visit Provider Radiology Diagnostic Radiology | DX: K44.9 Diaphragmatic hernia without obstruction or gangrene (principal) | CPT/HCPCS: 71046 ==

== ENCOUNTER 2024-07-03 16:10 | Outpatient (REF) | payer OTHER, SELFPAY ==
[2024-07-03 16:34] LABS: MANUAL DIFF FLAG NO
[2024-07-03 16:37] LABS: Basophils Absolute Auto 0.1 X10*3/uL (0.0-0.2); Basophils Percent Auto 0.9 % (0-2); Eosinophils Absolute Auto 0.1 X10*3/uL (0.0-0.4); Eosinophils Percent Auto 1.8 % (0-4); Hematocrit 37.9 % (37.0-47.0); Hemoglobin 12.3 g/dl (12.0-16.0); Imm Gran Abs Auto 0.02 X10*3/uL (0.00-0.03); Imm Gran Pct Auto 0.3 % (0.0-0.4); Lymphocytes Absolute Auto 1.1 X10*3/uL (1.2-4.9); Mean Corpuscular HGB Conc 32.5 g/dl (31.0-35.0); Mean Corpuscular Hemoglobin 29.1 pg (27.0-33.0); Mean Corpuscular Volume 89.6 fL (80.0-98.0); Mean Platelet Volume 9.5 fL (9.4-12.3); Monocytes Absolute Auto 0.8 X10*3/uL (0.1-1.2); Monocytes Percent Auto 11.3 % (2-11); Neutrophils Absolute Auto 4.6 x10*3/uL (2.0-8.3); Neutrophils Percent Auto 69.7 % (45-73); Platelet Count 323 X10*3/uL (160-400); Red Blood Count 4.23 X10*6/uL (4.20-5.50); Red Cell Distribution Width 13.5 % (11.0-16.0); White Blood Count 6.6 X10*3/uL (4.8-10.8)
[2024-07-03 16:52] LABS: Alanine Aminotransferase 20 U/L (0-31); Albumin Level 4.1 g/dL (3.5-5.0); Alkaline Phosphatase 300 U/L (39-117); Anion Gap 11 (12-20); Aspartate Amino Transferase 21 U/L (5-31); Bilirubin Total 0.5 mg/dL (0.0-1.0); Blood Urea Nitrogen 17 mg/dL (9-16); Calcium 9.1 mg/dL (8.4-10.2); Carbon Dioxide 27 mmol/L (22-29); Chloride 105 mmol/L (96-108); Estimated Glomerular Filt Rate > 60; Glucose Random 84 mg/dL (60-115); Potassium 3.9 mmol/L (3.3-5.1); Sodium 139 mmol/L (135-145); Total Protein 7.2 g/dL (6.5-8.0)
--- OUTSIDE RECORDS SUMMARY | 2024-07-03 18:32 | XMS_ITS | Clinical Summary ---
Author Organization [facility] Address [address] [place] [address] Care Team Providers Care Bacon De Rinder Name Role Phone Ness Levi Primary Care Provider [phone] Allergies No known active allergies Medications buPROPion [...] Description 05/01/2024 3:15 PM EST Office Visit [facility] B [address] [place] [address] Rhett Johnson MD Idiopathic scoliosis in adult patient (Primary Dx); Post-menopausal from Last 3 Months Social History Tobacco [...] Info) Description 10/30/2024 11:00 AM EDT Follow-Up [facility] B [address] [place] [id number] Rhett Johnson MD [address] [place] [address] Health Maintenance Due Date Last Done Comments [...] Vaccine: Pediatric (0-5 Years) and At-Risk Patients (6-50 Years) Aged Out No longer eligible based on patient's age to complete this topic Procedures * Due to [place] [employer] law, this organization might not be sharing negative HIV tests. Procedure Name Priority Date/Time Associated Diagnosis Comments MRI THORACIC SPINE WO CONTRAST Routine 04/27/2024 5:55 PM EST Juvenile idiopathic scoliosis of thoracolumbar region MRI LUMBAR SPINE WO CONTRAST Routine 04/27/2024 5:25 PM EST Juvenile idiopathic scoliosis of thoracolumbar region from Last 3 Months Results * Due to [place] [employer] law, this organization might not be sharing [...] obtain the completed interpretation. ? Workstation ID: [id number] Narrative 05/01/2024 3:24 PM EST EXAMINATION: MRI [...] in the thoracic region. Resulting Agency Comment [id number] Procedure Note Ramu Carnes MD - 05/01/2024 [...] possible to obtain thecompleted interpretation. Workstation ID: [id number] [facility] PROCEDURES Final Resul [...] obtain the completed interpretation. ? Workstation ID: [id number] Narrative 05/01/2024 2:34 PM EST EXAMINATION: MRI [...] mass lesion is identified. Resulting Agency Comment [id number] Procedure Note Ramu Carnes MD - 05/01/2024 [...] possible to obtain thecompleted interpretation. Workstation ID: [id number] [facility] PROCEDURES Final Resul t from Last 3 Months Insurance [employer] Care Teams Bacon De Rinder Relationship Specialty Start Date End Date Ness Levi [address] [place] [address] PCP - General Physician Blueprint Assembler 02/07/24
--- OUTSIDE RECORDS SUMMARY | 2024-07-03 18:32 | XMS_ITS | Data Portability ---
Author Organization [facility], [facility] Address [address] [place] [id number] Assessment Encounter Date Assessment Date Assessment LastModified [...] f/u neurologist 04/2015? 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 Planned very happy. Missed AB last year, expectant management did not pass POC for 5 months. Return of menses in October. Reports being seen by Nuvia Yap MD and [facility] for early 8 & 10 week ultrasounds [...] to care RTO 4 weeks or PRN [email or web address] Not available 03/04/2016 16:27:29 Plan of Treatment Reminders Order Date Submit Date Provider Last Modified By Organization Details Last Modified Time Details Appointments None recorded. Lab urinalysis, dipstick 2015 016 In-House Test, For Internal Use Only, Do Not Delete/merge, [id number] 04:07:23 test, urine 2014 015 [email or web address] In-House Test, For Internal Use Only, Do Not Delete/merge, [id number] 6 21:46:32 Referral chorionic villi sampling and genetic counseling - Pt has MS and was on medication for antidepress ion 2014 016 [email or web address] Man Wick MD [facility], [address] [facility], [place], [address], 6 15:58:36 Procedures None recorded. Surgeries None recorded. Imaging ultrasound, OB, trimester 1 2014 015 IVONNE Wick MD [facility], [address] [facility] [place], [address], 6 14:02:11 Medication Orders None recorded. Patient TargetsNo targets recorded. Patient Instructions Encounter Date Encounter Id Patient Instructions Last Modified By Organization Details Last Modified Time 03/04/2016 [id number] After Age 35: Care Instructions [id number] Not available 04/09/2016 04:07:20 Reason for Referral Chorionic Villi Sampling And Genetic Counseling for Advanced maternal age Pt has MS and was on medication for antidepression Referring Physician: Jocelyn García, DIRECTOR OF ROTC, Encounter Date: 04/23/2015 Results Created Date Observation Date Name Description Value Unit Range Abnormal Flag Note LastModifiedBy Organization Detail LastModifiedTime 03/04/20 16 03/04/2016 urina lysis , dipst ick Protein Negati ve Not Available In-House Te st For Internal Use Only, Do Not Delete/merge, [id number] 03/04/2016 15:15:00 03/04/20 16 03/04/2016 urina lysis , dipst ick Glucose Negati ve Not Available In-House Te st For Internal Use Only, Do Not Delete/merge, [id number] 03/04/2016 15:15:00 04/23/20 15 04/23/2015 pregn marilee test, urine HCG positi ve Not Available In-House Te st For Internal Use Only, Do Not Delete/merge, [id number] 04/23/2015 15:32:37 06/26/19 16 06/26/2015 beta- HCG, quant itati ve, serum or plasm a beta HCG 194 abnormal Not Available [facility] [address] [place] [address], [address], 07/06/2015 12:27:14 05/07/19 16 05/07/2015 ultra sound , OB, trime ster 1 No observ ation record ed. [email or web address] [facility] [address] [place] [address] [place], [address], 03/04/2016 16:18:18 06/12/19 16 06/12/2015 ultra sound , pelvi c trans abdom inal No observ ation record ed. Not Available 02/22 16:18:18 06/12/19 16 06/12/2015 ultra sound , pelvi c trans abdom inal No observ ation record ed. [email or web address] [facility] [address] [place], [address], 03/04/2016 16:18:18 06/16/19 16 06/12/2015 ultra sound , pelvi c trans abdom inal No observ ation record ed. [email or web address] Laura CNM [address] [place], [address], 03/04/2016 16:18:19 Result Notes None recorded. Problems Name Problem SNOMED Code Status Onset Date Resolution Date Notes Provider Name and Address Organization Details Recorded Time Multiple sclerosi s 89316493 Active 2007 on medicatio n but stop since . Due to MS she was also on Antidepre ssion medicatio n but her neurologi st states she can stop once she is . Jocelyn García null, [facility] 5 16:16:57 Missed miscarri age 02831343 Active Wen Kaiserkatherinsilvio null, [facility] 6 14:44:22 Complete miscarri age 686312403 Active Wen Laura null, [facility] 6 09:24:44 Pregnanc y 05125751 Completed 201508/08/2016 Summer Clayton null, [facility] 7 18:52:01 Problem Notes None recorded. Procedures Surgical History None recorded. Imaging Results Imaging Date Name Status LastModified by Organization Details LastModified Time 05/07/2015 ultrasound, OB, trimester 1 completed [email or web address] [facility] [address] [facility] [place], [address], 03/04/2016 16:18:18 06/12/2015 ultrasound, pelvic transabdominal completed [email or web address] Information not available 03/04/2016 16:18:18 06/12/2015 ultrasound, pelvic transabdominal completed [email or web address] [facility] [address] [place], [address], 03/04/2016 16:18:18 06/12/2015 ultrasound, pelvic transabdominal completed [email or web address] Wen Kaiserthea CN [address] [place], [address], 03/04/2016 16:18:19 Procedure Notes None recorded. Medical [...] Updated DateTime 04/23/2015 166.37 cm 26.1 kg/m2 40317.18 683 g 110 mm[Hg] 70 mm[Hg] Jennifer [facility] 5 15:32:37 Date Recorded Body height Body weight Body mass index (BMI) Systolic blood pressure Diastolic blood pressure Provider Name and Address Organization Details Last Updated DateTime 03/04/2016 166.37 cm 84543.96 394 g 26.5 kg/m2 110 mm[Hg] 70 mm[Hg] Brandi Mcfarland [facility] 6 15:25:30 Social History Question Answer Notes LastModified by Organizat ion Details LastModified Time Tobacco Smoking Status Former Smoker [facility] 04/23/2015 15:37:36 What Is Your Level Of Alcohol Consumption? None Information not available 04/23/2015 If You Are , What Was Your Level Of Alcohol Consumption Prior To ? 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 0 Information not available 04/23/2015 Discuss Mother's Feeding Plan 03/04/2016 Breast [email or web address] Information not available 03/04/2016 If , Offer Positive Reinforcement 03/04/2016 [email or web address] Information not available 03/04/2016 Performs Monthly Self-breast Exam? No Information no t available 04/23/2015 How Much Tobacco Do You Smoke? No Information not available 04/23/2015 Smoking Pre- No Information not available 04/23/2015 General Stress Level Medium [email or web address] Information not available 03/04/2016 How Many Years Have You Smoked Tobacco? 11 [email or web address] Information not available 03/04/2016 Sex: Unknown Functional Status Question Answer Note LastModified by Organization D etails LastModified Time What is your exercise level? Moderate [email or web address] Information not available 03/04/2016 Mental Status None recorded. Family History Nothing Reported. Medical History Condition Response Anxiety Disorder Y Diabetes N Anesthesia complications N High Blood Pressure N Arthritis N Heart Conditions N Infertility N Cancer N Varicosities N Kidney or Bladder Problems N GI Problems N Depression Y Defects or Inherited Disease N Breast Problem N Trauma/Violence N Anemia N Hepatitis N Headaches/Migraines N Respiratory Problems N Thyroid or Endocrine Problems N Psychiatric Illness N Gynecological History Statement/Question Response Abnormal Pap [...] SNOMED-CT Code Diagnosis ICD10 Code Diagnosis Note [id number] Jocelyn García [facility] [address] [place] [phone] 04/23/2015 15:26:11 04/23/2015 16:13:18 Routine care 537526160 Z34.91 Advanced m aternal age 172248979 O09.899 [id number] Cassie Chen [facility] [address] [place] [address] 03/04/2016 15:01:05 03/07/2016 11:34:17 Routine care 986219519 Z34.81 Health Concerns Section Related Observation LastModified by Organization Detai ls LastModified Time None Recorded Concern Status LastModified by Organization Details LastModified Time None Recorded Advance Directives Directive None Recorded Payers Encounter Date Sequence Insurance Name Policy Number Policy Leiva Covered Member ID Leiva Member ID Guarantor Name 04/23/2015 1 [employer] (HMO) Sarah Anguiano [id number] Sarah Anguiano 03/04/2016 1 [facility] Sarah Anguiano [id number] Sarah Anguiano OBGyn Episode Ob Episode Information Episode Created Date Number of Fetuses Patient Bloodtype Patient rh Status Prepregnancy Weight lbs Domestic Partner Domestic Partner Phone Father Name Supervisor Cold Rolling Status 03/04/20 16 1 O Positive Rich whitman CLOSED Fetus Data First Name Last Name Admitted to NICU Weight (g) Sex Living Outcome Pediatric Complications Fetus ID Race Codes Race Delivery Type [id number] Rajesh Calculation Initial Rajesh Date Initial Exam [...] Latest Days Gestation 0 09/24/19 17 0 Pre- Flowsheet Flowsheet Date 03/04/2016 Johnson Score Blood Edema Fundus Height Fundus Units Glucose Ketones Leukocytes Nitrite Labor Signs Protein Cervic Dilation Cervic Effacement Cervic Station none 11 cm none none neg Type Weight in lbs Pre/Post Dialysis Refused 162.202625228169 BP Diastolic BP Location Tested BP Systolic [...] At Estimated Date of Delivery true Thalassemia (Thai, Barbadian, Mediterranean, Or Background): MCV < 80 false Neural Tube Defect (Meningom yelocele, Spina Bifida, Or Anencephaly) false Congenital Heart Defect false Down Syndrome true First cousins so n has DS Lalit-Sachs (eg, Druze, Cajun, Grenadian-Gibraltarian) f alse Goyo Disease false Sickle Cell Disease Or Trait () false Hemophilia Or Other Blood Disorders false Muscular Dystrophy false Cystic Fibrosis false Jessica's Chorea false Mental Retardation/Autism true Nephew has [...] Of Genital Herpes true First outbreak age 2008 Rash Or Viral Illness Since Last Menstrual [...] Domestic Partner Domestic Partner Phone Father Name Supervisor Cold Rolling Status 03/04/20 16 1 CLOSED Fetus Data First Name Last Name Admitted to NICU Weight (g) Sex Living Outcome Pediatric Complications Fetus ID Race Codes Race Delivery Type , Spontane ous [id number] Rajesh Calculation Initial Rajesh Date Initial Exam [...]
--- OUTSIDE RECORDS SUMMARY | 2024-07-03 18:32 | XMS_ITS | Continuity of Care Document ---
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 Start Date: 06/23/23 Status: Ordered Repeat number: 1 dextroamphetamine 20 mg oral tablet 1 tablet = 20 mg, By Mouth, 3 times a day, 0 Refills, Maintenance, 06/23/23 9:22:00 AM EST, Tablet, Partial fill upon patient request if the prescription is for a schedule II opioid drug. Start Date: 06/23/23 Status: Ordered Repeat number: 1 diclofenac 1% topical gel = 2 Gm, Topically, 4 times a day, 0 Refills, Maintenance, 06/23/23 9:23:00 AM EST, Partial fill upon patient request if the prescription is for a schedule II opioid drug. Start Date: 06/23/23 Status: Ordered Repeat number: 1 escitalopram 20 mg oral tablet 1 tablet = 20 mg, By Mouth, Daily, # 30 tablet, 0 Refills, Maintenance, 11/12/21 12:58:00 PM EDT, Tablet, Partial fill upon patient request if the prescription is for a schedule II opioid drug. Start Date: 11/12/21 Status: Ordered Quantity: 30.0 Unit: tablet Repeat number: 1 Ipratropium 500 mcg, Neb, 4 times a day, Refills 0, Maintenance, 02/07/24 12:17:00 PM EDT Start Date: 02/07/24 Status: Ordered Repeat number: 1 methylphenidate 18 mg oral tablet, extended release 1 tablet = 18 mg, By Mouth, Daily in AM, 0 Refills, Maintenance, 06/17/22 9:17:00 AM EST, ER Tablet,Partial fill upon patient request if the prescription is for a schedule II opioid drug. Start Date: 06/17/22 Status: Ordered Repeat number: 1 methylphenidate 36 mg oral tablet, extended release 1 tablet = 36 mg, By Mouth, Daily in AM, 0 Refills, Maintenance, 02/07/24 12:14:00 PM EDT, Partial fill upon patient request if the prescription is for a schedule II opioid drug. Start Date: 02/07/24 Status: Ordered Repeat number: 1 Vital Signs Most recent to oldest [Reference Range]: 1 2 3 Oxygen Saturation [94-100 %] 97 % (02/07/24 4:41 PM) 96 % (02/07/24 3:15 PM) 96 % (02/07/24 2:45 PM) Pulse Rate [55-90 bpm] 92 bpm *H* (02/07/24 4:41 PM) 82 bpm (02/07/24 3:15 PM) 83 bpm (02/07/24 2:45 PM) Blood Pressure [90-138/55-84 mm Hg] 121/70mm Hg (02/07/24 4:41 PM) 130/72mm Hg (02/07/24 3:15 PM) 119/70mm Hg (02/07/24 2:45 PM) Respiratory Rate [16-30 br/min] 18 br/min (02/07/24 4:41 PM) 18 br/min (02/07/24 3:15 PM) 18 br/min (02/07/24 2:45 PM) Temperature [96.8-100.4 DegF] 98.7 DegF (02/07/24 4:41 PM) 98.7 DegF (02/07/24 3:15 PM) 98.7 DegF (02/07/24 2:45 PM) Mode of Delivery (Oxygen) Room air (02/07/24 4:41 PM) Room air (02/07/24 3:15 PM) Room air (02/07/24 2:45 PM) Temperature Route Temporal (02/07/24 4:41 PM) Temporal (02/07/24 3:15 PM) Temporal (02/07/24 2:45 PM) Dry Weight 65.5 kg (02/07/24 11:32 AM) Dry Weight Obtained Via Standing scale (02/07/24 11:32 AM) Hospital Progress note * Angelina Fuller RN: PERFORM, SIGN, VERIFY Event Display: Progress Note Hospital Authored Date: [id number] Patient: DINAH DONAHUE Age: 48 years Sex: Female : 1975 Associated Diagnoses: None Author: Angelina Fuller RN Findings Nursing Data IV Lines. 02/07/2024 16:45 EDT Right Antecubital 22 gauge Peripheral IV Activity: Discontinue Peripheral IV Assess Compare Touch: A/C/T Done, line D/C'd and or pt discharged Peripheral IV D/C Date/Time: 02/07/2024 18:41 Peripheral IV D/C Reason: Discontinued treatment complete Peripheral IV Post-Removal: Catheter tip intact, Dry sterile dressing applied Peripheral IV Site Assessment: Clean, dry and intact Peripheral IV Dressing: Clean, dry and intact, Gauze 02/07/2024 11:45 EDT Right Antecubital 22 gauge Peripheral IV Activity: Start Peripheral IV Insertion Date/Time: 02/07/2024 11:45 Peripheral IV Number of Attempts: 1 Peripheral IV Site Assessment: Clean, dry and intact, Flushes Well, Good Blood return Peripheral IV Dressing: Clean, dry and intact, Semi-permeable membrane . Vital Signs : VITAL SIGNS SECTION 02/07/2024 16:41 EDT Temperature 98.7 DegF Temperature Route Temporal Pulse Rate 92 bpm H Respiratory Rate 18 br/min Systolic Blood Pressure 121 mm Hg Diastolic Blood Pressure 70 mm Hg Mean Arterial Pressure 87 mm Hg Pulse Pressure 51 mm Hg Oxygen Saturation 97 % Mode of Delivery (Oxygen) Room air 02/07/2024 15:15 EDT Temperature 98.7 DegF Temperature Route Temporal Pulse Rate 82 bpm Respiratory Rate 18 br/min Systolic Blood Pressure 130 mm Hg Diastolic Blood Pressure 72 mm Hg Mean Arterial Pressure 91 mm Hg Pulse Pressure 58 mm Hg Oxygen Saturation 96 % Mode of Delivery (Oxygen) Room air 02/07/2024 14:45 EDT Temperature 98.7 DegF Temperature Route Temporal Pulse Rate 83 bpm Respiratory Rate 18 br/min Systolic Blood Pressure 119 mm Hg Diastolic Blood Pressure 70 mm Hg Mean Arterial Pressure 86 mm Hg Pulse Pressure 49 mm Hg Oxygen Saturation 96 % Mode of Delivery (Oxygen) Room air 02/07/2024 14:19 EDT Temperature 98.6 DegF Temperature Route Temporal Pulse Rate 83 bpm Respiratory Rate 18 br/min Systolic Blood Pressure 122 mm Hg Diastolic Blood Pressure 70 mm Hg Mean Arterial Pressure 87 mm Hg Pulse Pressure 52 mm Hg Oxygen Saturation 100 % Mode of Delivery (Oxygen) Room air 02/07/2024 13:44 EDT Temperature 98.6 DegF Temperature Route Temporal Pulse Rate 83 bpm Respiratory Rate 18 br/min Systolic Blood Pressure 122 mm Hg Diastolic Blood Pressure 70 mm Hg Mean Arterial Pressure 87 mm Hg Pulse Pressure 52 mm Hg Oxygen Saturation 100 % Mode of Delivery (Oxygen) Room air 02/07/2024 13:13 EDT Temperature 98.7 DegF Temperature Route Temporal Pulse Rate 83 bpm Respiratory Rate 18 br/min Systolic Blood Pressure 120 mm Hg Diastolic Blood Pressure 72 mm Hg Mean Arterial Pressure 88 mm Hg Pulse Pressure 48 mm Hg Oxygen Saturation 100 % Mode of Delivery (Oxygen) Room air 02/07/2024 11:32 EDT Temperature 98.1 DegF Temperature Route Temporal Pulse Rate 86 bpm Respiratory Rate 18 br/min Systolic Blood Pressure 145 mm Hg H Diastolic Blood Pressure 85 mm Hg H Mean Arterial Pressure 105 mm Hg Pulse Pressure 60 mm Hg Oxygen Saturation 100 % Mode of Delivery (Oxygen) Room air . Narrative/Incidental Pt admitted for recur ocrevus infusion. Tylenol, Benadryl, and Methylprednisone pre-medication given. Infusion well tolerated. Infusion end time: 1641. Pt ambulatory at the time of discharge. . Patient Care team information Care Team Personnel Name: Ness Bowman Position: Reference Physician Member Role: PCP Address: [address] [place] [address] [place] Telecom: Care Team Related Persons Name: TOMA DONAHUE Insurance Providers Guarantor name: DINAH DONAHUE Health Plan Information #: 1 Payer: [facility] [employer] NON [employer] HMO Member Number: [id number] Policy Number: NA Group Number: NA Health Plan Information #: 2 Payer: [facility] [employer] NON [employer] HMO Member Number: [id number] Policy Number: NA Group Number: NA
--- OUTSIDE RECORDS SUMMARY | 2024-07-03 18:32 | XMS_ITS | Referral Summary ---
Author Organization [facility] Address [address] [place] [address] Care Team Providers Care Iv Therapy Nurse Name Role Phone Ness Levi Primary Care Provider Encounters Date Type Department Care Team Description 05/01/2024 3:15 PM EST Office Visit [facility] [address] [place], [place] [phone] Rhett Johnson MD Idiopathic scoliosis in adult patient (Primary Dx); Post-menopausal from Last 3 Months Allergies No known [...] Info) Description 10/30/2024 11:00 AM EDT Follow-Up [facility] [address] [place] [phone] Rhett Johnson MD [address] [place] [phone] Procedures * Due to [place] [employer] law, this organization might not be sharing negative HIV tests. Procedure Name Priority Date/Time Associated Diagnosis Comments MRI THORACIC SPINE WO CONTRAST Routine 04/27/2024 5:55 PM EST Juvenile idiopathic scoliosis of thoracolumbar region MRI LUMBAR SPINE WO CONTRAST Routine 04/27/2024 5:25 PM EST Juvenile idiopathic scoliosis of thoracolumbar region from Last 3 Months Results * Due to [place] [employer] law, this organization might not be sharing [...] obtain the completed interpretation. ? Workstation ID: [id number] Narrative 05/01/2024 3:24 PM EST EXAMINATION: MRI [...] in the thoracic region. Resulting Agency Comment [id number] Procedure Note Ramu Carnes MD - 05/01/2024 [...] possible to obtain thecompleted interpretation. Workstation ID: [id number] [facility] [place] [facility] PROCEDURES Final Resul t [...] obtain the completed interpretation. ? Workstation ID: [id number] Narrative 05/01/2024 2:34 PM EST EXAMINATION: MRI [...] mass lesion is identified. Resulting Agency Comment [id number] Procedure Note Ramu Carnes MD - 05/01/2024 [...] possible to obtain thecompleted interpretation. Workstation ID: [id number] [facility] MRI PROCEDURES Final Resul t from Last 3 Months Insurance [facility] Care Teams Iv Therapy Nurse Relationship Specialty Start Date End Date Ness Levi [address] [place] [address] PCP - General Physician Hyperbaric Nurse 02/07/24
== END 2024-07-03 16:11 | disposition home or self-care (01) ==
LOC: HO.LAB 16:10
PROVIDERS: PCP Physician Assistant Medical; Visit Provider Internal Medicine Medical Oncology
DX: R74.8 Abnormal levels of other serum enzymes (principal)
CPT/HCPCS: 36415; 80053; 85025

== ENCOUNTER 2024-07-17 15:53 | Outpatient (AMB) | payer OTHER, SELFPAY ==
--- NOTE | 2024-07-17 16:02 | A.OFFVIS_ITS ---
Vital Signs 07/17/24 16:03 Height 5 ft 3 in Weight 146 lb BMI 25.9 BP 134/70 Blood Pressure Location Lt brachial Position Sitting Pulse 99 Pulse Source Pulse Oximeter Pulse Oximetry (%) 97 Oxygen Delivery Method Room Air Intake Visit Reasons: Cough/PFT Follow Up Backup Administrator Required: No Backup Administrator Services: Backup Administrator Offered & Declined Gathering Machine Feeder: Gathering Machine Feeder offered & declined Allergies No Known Allergies Allergy (Verified 07/17/24 16:07) Medication List - Last Reconciled 07/17/24 by Cony Aguilar LPN bisacodyl (Dulcolax (bisacodyl)) 20 mg (4 x 5 mg) PO ONCE 1 day bupropion HCl XL (Wellbutrin XL) 300 mg PO QAM dextroamphetamine-amphetamine 15 mg ER 1 cap PO QAM escitalopram oxalate 20 mg PO DAILY fluticasone propion-salmeterol 100-50 mcg/dose (Wixela Inhub) 1 inh inhalation BID ipratropium bromide 2 sprays intranasal BID ipratropium bromide 2 sprays intranasal BID ocrelizumab (Ocrevus) 600 mg IV [id number] polyethylene glycol 3350 (Miralax) 238 grams PO ONCE HPI HPI Cough/PFT Follow Up: Details: Sarah is a pleasant 49 year old female, former smoker with approximately 20 pack year history, quit 2009, with underlying multiple sclerosis on Ocrevus, ADD and RLS. At the last visit, she reported cough was infrequent, which was the reason for pulmonary evaluation. However today reports dry cough is quite persistent, despite Wixela 100 mcg. She denies wheezing, dyspnea or chest tightness. She denies significant reflux symptoms. Today she presents to review CXR results. 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 She denies chest congestion or wheezing. She also notes attending an exercise class yesterday evening in which she has not been that active in quite some time, denying any dyspnea during the class. [facility] Medical History Scoliosis Multiple sclerosis Iron deficiency anemia Family History Sister Malignant neoplasm cervix Social History Household Members: Spouse Patient Tobacco Use Status: Former Tobacco user service: No Current occupational status: unemployed Review of Systems Const Denies chills, Denies excessive sweating, Denies headache(s) and Denies night sweats Eyes Denies dry eyes, Denies irritation and Denies itchy eyes ENT Reports Normal hearing present, Denies headache(s), Denies nasal congestion, Denies nasal discharge and Denies sore throat Card Denies chest pain, Denies chest pain at rest, Denies chest pain with activity, Denies claudication, Denies leg edema, Denies dyspnea, Denies dyspnea on exertion, Denies orthopnea and Denies paroxysmal nocturnal dyspnea Resp Denies chest congestion, Denies excessive phlegm production, Denies pain on inspiration, Denies pain with cough, Denies dyspnea, Denies dyspnea on exertion, Denies stridor and Denies wheezing Musc Denies myalgias Neuro Reports Normal hearing present and Denies headache(s) Endo Denies excessive sweating Rickey/Lymph Denies lymphadenopathy Aller/Immun Denies itchy eyes, Denies seasonal rhinorrhea and Denies wheezing Physical Exam Vital Signs: Last Vital Signs Pulse 99 07/17/24 16:03 BP 134/70 07/17/24 16:03 Pulse Ox 97 07/17/24 16:03 Oxygen Delivery Method Room Air 07/17/24 16:03 BMI result Body Mass Index 25.9 Const General: cooperative, healthy appearing, comfortable, no acute distress, well developed and alert Orientation/consciousness: patient oriented x3 Limitations: no limitations HEENT Head: Yes normal to inspection, Yes normocephalic and Yes atraumatic Ears: hearing grossly normal bilaterally and external ears normal Eyes General: appearance normal, both eyes and all related structures Eyelids: Yes eyelids normal Sclerae: sclerae normal EOM: EOMs intact bilaterally Neck Neck: Yes normal visual inspection and Yes no lymphadenopathy Lymphatic: no lymphadenopathy noted Chest Chest palpation & inspection: normal inspection of the chest Resp Effort & Inspection: normal respiratory effort, able to speak in complete sentences, no audible wheezes, no cough, no stridor, not tachypneic, no tripod positioning and no use of accessory muscles Auscultation: clear to auscultation bilaterally Cardio Jugular venous distension: no JVD Rate: regular rate Rhythm: regular rhythm Skin Other: warm, dry General skin exam: no rashes or lesions noted Neuro General: patient oriented x3 Cranial nerves: Yes Normal hearing present Cognition (Neuro): normal cognition Gait exam (Neuro): Normal gait present Extrem General: Yes normal to inspection, Yes capillary refill normal, Yes no clubbing, cyanosis or edema and Yes no pedal edema Psych Appearance: grossly normal and well kempt Speech and movement: Normal speech and movement present and Clear speech present Affect: normal affect Attitude: cooperative Thought process: Normal thought process present Thought content: Normal thought content present Insight: Good insight present (Psych) Judgement: Good judgement present (Psych) Assessment & Plan Assessment & Plan (1) Asthma: Code(s): J45.909 - Unspecified asthma, uncomplicated Category: Medical (2) Cough: Code(s): R05.9 - Cough, unspecified Category: Medical Plan Patient reports suboptimal control with Wixela 100 mcg, will increase to Wixela 250 mcg. CXR unremarkable. Today she reports symptoms of possible viral infection, respiratory exam unremarkable. Will hold off on any treatment, however she is aware if symptoms do not improve to call office. It is possible that she has muscle fatigue related to deconditioning and increased cough triggered by activity, encouraged use of albuterol prior to exercise. All qu estions were answered and patient is in agreement of plan. Will follow up in 6-8 weeks or sooner if needed. Medications: New albuterol sulfate 90 mcg/actuation 2 puffs inhalation Q4-6H PRN 1 ea 3RF shortness of breath or wheezing fluticasone propion-salmeterol 250-50 mcg/dose (Wixela Inhub) 1 inh inhalation Q12H 60 ea 3RF Discontinued fluticasone propion-salmeterol 100-50 mcg/dose (Wixela Inhub) Discontinued Reason: Patient Completed Course 1 inh inhalation BID 60 ea 3RF Coding Level of Care Code Est Pt Level 4 (67170) Diagnoses Asthma J45.909 Cough R05.9
[2024-07-17 16:03] VITALS: BP 134/70; PULSE 99; O2SAT 97; BMI 25.9
== END 2024-07-17 16:33 | disposition home or self-care (01) ==
LOC: HO.HPSW 15:54
PROVIDERS: PCP Physician Assistant Medical; Visit Provider Nurse Practitioner Family
DX: J45.909 Unspecified asthma, uncomplicated (principal); R05.9 Cough, unspecified
CPT/HCPCS: 99214

== ENCOUNTER 2024-08-08 08:44 | Outpatient (AMB) | payer OTHER, SELFPAY ==
--- NOTE | 2024-08-08 08:50 | MHC.OFFVIS ---
Vital Signs 08/08/24 08:59 Height 5 ft 3 in Weight 147 lb BMI 26.0 BP 126/78 Intake Visit Reasons: Perimenopause symptoms/External Referral Intake Note: Experiencing mood swings/anger. Patient thinks her last pap smear was 1 year ago, normal history. Animal Care Provider: Animal Care Provider Present (Adeline) Accompanied by: Self / Same As Patient Allergies No Known Allergies Allergy (Verified 08/08/24 08:59) Is last menstrual period known: Yes Last menstrual period: 07/09/24 Post menopausal: No Patient : No HPI Comments Details: The patient is complaining of markedly depressed mood, anxiety, tension, affective lability, Persistent and marked anger / irritability / increased interpersonal conflicts, decreased interest in usual activities, difficulty in concentrating, lack of energy, marked food cravings, feeling overwhelmed or out of control. The patient is not sure ifl those symptoms are cyclic and disappear after menses. Those disturbances are affecting her usual social activities and relationships. [facility] Medical History Scoliosis Multiple sclerosis Iron deficiency anemia Family History Sister Malignant neoplasm cervix Social History Household Members: Spouse Patient Tobacco Use Status: Former Tobacco user service: No Current occupational status: unemployed Female Reproductive History Menstrual Age of Menarche: 13 Duration of menses: 6-7 days Date of last menstrual period: 07/09/24 control method: copper IUCD Total pregnancies: 2 Full term: 1 Ab spontaneous: 1 History of abnormal pap smear: No Date of Mammogram: 11/22/23 (bi rad 1) Review of Systems Const All systems reviewed & are unremarkable except as noted in HPI and below Reports as per HPI and Reports no additional complaints GI Reports no additional complaints Reports no additional complaints Physical Exam Vital Signs: Last Vital Signs BP 126/78 08/08/24 08:59 BMI result Body Mass Index 26.0 Assessment & Plan Assessment & Plan (1) Mood changes: Code(s): R45.86 - Emotional lability Category: Medical Plan: Discussed with the patient differential diagnosis of her symptoms could be exacerbation of anxiety and depression Bethany menstrually versus PMDD. Daily record of severity of problems diary diarrhea were given to the patient to record symptoms in the coming 2-3 months. Will check the records and treat accordingly All questions answered, the patient verbalized understanding Coding Level of Care Code New Pt Level 3 (11433) Diagnoses Mood changes R45.86
[2024-08-08 08:59] VITALS: BP 126/78; BMI 26.0
--- OUTSIDE RECORDS SUMMARY | 2024-08-08 09:23 | XMS_ITS | Referral Summary ---
Author Organization [facility] Address [address] [place] [address] Care Team Providers Care Hvac Controls Technician Name Role Phone Ness Levi Primary Care Provider [phone] Encounters Date Type Department Care Team Description 07/15/2024 Telephone [facility] [address], [place] [phone] Telephone Intake, Staff PAC Patient Request Call Back Elizabeth from Last 3 Months Allergies No known [...] Info) Description 10/30/2024 11:00 AM EDT Follow-Up [facility] B [address] [place] [id number] Rhett Johnson MD [address] [place] [address] Insurance [employer] Care Teams Hvac Controls Technician Relationship Specialty Start Date End Date Ness Levi [address] [place] [phone] PCP - General Physician Inventory Control Planner 02/07/24
--- OUTSIDE RECORDS SUMMARY | 2024-08-08 09:23 | XMS_ITS | Encounter Summary ---
Author Organization [facility] Address [address] [place] [address] Care Team Providers Care Ground Support Equipment Mechanic Name Role Phone Ness Levi Primary Care Provider [phone] Reason for Visit * Reason Onset Date Comments PAC [facility] Back [facility]2024 Encounter Details Date Type Department Care Team (Late st Contact Info) Description 07/15/2024 Telephone [facility] [address] [place] [address] Telephone Intake, Staff PAC Patient Request Call Back [facility] Social History Tobacco Use Types Packs/Day Years [...] PM EST documented as of this encounter Miscellaneous Notes * Telephone Encounter - Ifrah Jorgensen - 07/31/2024 12:45 PM EDT Patient wants to hear the outcome of communication when he spoke with mentors at [facility] regarding moving forward with surgery. Please give her a call back at [phone]. Thank you! * Telephone Encounter - Loulou Epperson - 07/15/2024 4:31 PM EDT Pt is requesting a call back from Dr Johnson's office regarding the outcome conversation with Elizabeth and Remi about her surgery. Please call back at [phone]. documented in this encounter Plan of Treatment Upcoming Encounters Date Type Department Care Team (Late st Contact Info) Description 10/30/2024 11:00 AM EDT Follow-Up [facility] B [address] [place] [address] Rhett Johnson MD [address] [place] [address] documented as of this encounter Visit Diagnoses Not on filedocumented in this encounter Care Teams Ground Support Equipment Mechanic Relationship Specialty Start Date End Date Ness Levi [address] [place] [phone] PCP - General Physician Supervisor Wall Mirror Department 02/07/24 documented as of this encounter
--- OUTSIDE RECORDS SUMMARY | 2024-08-08 09:23 | XMS_ITS | Clinical Summary ---
Author Organization [facility] Address [address] [place] [address] Care Team Providers Care Brine Room Laborer Name Role Phone Ness Levi Primary Care Provider [phone] Allergies No known active allergies Medications buPROPion [...] Type Department Care Team Description 07/15/2024 Telephone [facility] [address] [phone] Telephone Intake, Staff PAC Patient Request Call Back Elizabeth from Last 3 Months Social History Tobacco [...] Info) Description 10/30/2024 11:00 AM EDT Follow-Up [facility] B [address] [place] [phone] Rhett Johnson MD [address] [place] [address] [phone] Health Maintenance Due Date Last Done Comments [...] on patient's age to complete this topic Insurance [employer] Member Subscriber Plan / Payer (Ef fective 2023-Present) Name:Sarah Anguiano Relation to Subscriber:Self Name:Sarah Anguiano Payer ID:[id number] Type:HMO Address: [facility], [address] [place] [id number] Care Teams Brine Room Laborer Relationship Specialty Start Date End Date Ness Levi [address] [place] [phone] PCP - General Physician Screenplay Writer 02/07/24
== END 2024-08-08 09:35 | disposition home or self-care (01) ==
LOC: HO.HWS 08:44
PROVIDERS: PCP Physician Assistant Medical; Visit Provider Obstetrics & Gynecology
DX: R45.86 Emotional lability (principal)
CPT/HCPCS: 99203

== ENCOUNTER → 2024-08-08 08:44 | Outpatient (BNVA) | payer OTHER, SELFPAY | PROVIDERS: PCP Physician Assistant Medical; Visit Provider Obstetrics & Gynecology ==

== ENCOUNTER → 2024-11-27 10:15 | Outpatient (BNV) | payer OTHER, SELFPAY | PROVIDERS: PCP Physician Assistant Medical; Visit Provider Radiology Body Imaging | DX: Z12.31 Encounter for screening mammogram for malignant neoplasm of breast (principal) | CPT/HCPCS: 77063; 77067 ==

== ENCOUNTER 2024-11-27 10:28 | Outpatient (REF) | payer OTHER, SELFPAY ==
--- OUTSIDE RECORDS SUMMARY | 2024-11-27 11:08 | XMS_ITS | Clinical Summary ---
Author Organization [facility] Address [address] [place] [address] Care Team Providers Care Refrigeration Operator Name Role Phone Ness Levi Primary Care Provider Allergies No known active allergies Medications buPROPion XL (WELLBUTRIN XL) 300 mg tablet Take 300 mg by mouth once a day. Active escitalopram (LEXAPRO) 20 mg tablet 8 Active ipratropium (ATROVENT) 0.03% nasal spray PLEASE SEE ATTACHED FOR DETAILED DIRECTIONS 4 Active methylphenidate ER 36 mg tablet 4 Active ocrelizumab (OCREVUS INTRAVENOU) 1 Active albuterol (PROAIR HFA,VENTOLIN HFA) 90 mcg inhaler SMARTSI Puff(s) Every 4-6 Hours PRN 5 Active busPIRone (BUSPAR) 10 mg tablet SMARTSI Tablet(s) By Mouth Twice Daily 5 Active Active Problems No known active problems Encounters Date Type Department Care Team Description 10/30/2024 11:34 AM EDT - 10/30/2024 11:59 PM EDT Hospital Encounter [facility] Xray [address] [place] [address] Rhett Johnson MD Idiopathic scoliosis in adult patient Discharge Disposition: Home or Self Care () 10/30/2024 11:30 AM EDT Follow-Up [facility] B [address] [place] [address] Rhett Johnson MD Post-menopausal (Primary Dx); Idiopathic scoliosis in adult patient 10/18/2024 Telephone [facility] B [address] [place] [address] Telephone Intake, Staff PAC Patient Request Call BackDR. MERRY 10/15/2024 Orders Only [facility] B [address] [place] [address] Rhett Johnson MD Idiopathic scoliosis in adult patient (Primary Dx) from Last 3 Months Social [...] Info) Description 05/14/2025 11:00 AM EST Follow-Up [facility] B [address] [place] [address] Rhett Johnson MD [address] [place] [phone] Health Maintenance Due Date Last Done Comments [...] Social Drivers of Health Annual Screening 04/24/2024 Influenza Vaccine (#1) 2024 , 01/20/2023, 04/22/2022, Additional history exists DTaP,Tdap,and Td Vaccines (2 - Td or Tdap) 07/10/2031 07/09/2021 RSV Vaccine (60+ years old and patients) (1 - 1-dose 75+ series) 2050 COVID-19 Vaccine Completed 01/20/2024, , 04/22/2022, Additional history exists Pneumococcal Vaccine: Pediatric (0-5 Years) and At-Risk Patients (6-50 Years) Aged Out No longer eligible based on patient's age to complete this topic Procedures * Due to [employer] [place] [employer] law, this organization might not be sharing negative HIV tests. Procedure Name Priority Date/Time Associated Diagnosis Comments XR SCOLIOSIS 2-3 VIEWS Routine 10/30/2024 11:51 AM EDT Idiopathic scoliosis in adult patient from Last 3 Months Results * Due to [place] [employer] law, this organization might not be sharing negative HIV tests. * X-Ray Scoliosis Standing AP and Lateral (10/30/2024 11:51 AM EDT) Anatomical Region Laterality Modality Spine Computed Radiogr aphy 11/01/2024 8:17 PM EDT Impressions 11/01/2024 8:22 PM EDT Findings and impression: Scoliosis series AP and lateral views upright entire spine and AP and lateral views of the cervical thoracic and the lumbar spine. Mild generalized osteopenia. S-shaped scoliosis of the spine measuring approximately 35.9 and 62.5 degrees previous study 47.2 and 55.8 degrees. Thoracolumbar kyphosis and straightening of the thoracic kyphosis. Degenerative changes in the thoracolumbar region. Large hiatal hernia. Multilevel degenerative disc changes at different sites are suboptimally seen. No acute changes detected with certainty. If this radiology report contains a blank impression section, it is an incomplete radiology report. Please contact the interpreting radiologist or applicable radiology division as soon as possible to obtain the completed interpretation. Workstation ID: [id number] Narrative 11/01/2024 8:22 PM EDT Comparison 03/07/2024. Resulting Agency Comment [id number] Procedure Note Kamilla Vickers MD - 11/01/2024 Comparison 03/07/2024. IMPRESSION: Findings and impression: Scoliosis series AP and lateral views upright entire spine and AP andlateral views of the cervical thoracic and the lumbar spine. Mild generalized osteopenia. S-shaped scoliosis of the spine measuringapproximately 35.9 and 62.5 degrees previous study 47.2 and 55.8degrees. Thoracolumbar kyphosis and straightening of the thoracic kyphosis.Degenerative changes in the thoracolumbar region. Large hiatal hernia. Multilevel degenerative disc changes at different sites are suboptimallyseen. No acute changes detected with certainty. If this radiology report contains a blank impression section, it is anincomplete radiology report. Please contact the interpreting radiologistor applicable radiology division as soon as possible to obtain thecompleted interpretation. Workstation ID: [id number] Rhett Johnson MD IMG XR PROCEDURES Final Result from Last 3 Months Insurance [facility] Care Teams Refrigeration Operator Relationship Specialty Start Date End Date Vu Leviha [address] [place] [address] PCP - General Physician Piece Marker [employer] 02/07/24
--- OUTSIDE RECORDS SUMMARY | 2024-11-27 11:08 | XMS_ITS | Encounter Summary ---
Author Organization [facility] Address [address] [address] Phone Care Team Providers Care Sand Mill Operator Name Role Phone Veronica Riley MD Primary Care Provider [phone] Ness Levi Unavailable [phone] Encounter Details Date Type Department Care Team (Late st Contact Info) Description 02/03/2023 Procedure Pass [facility] Endoscopy Admitting Dept Virtual Department [address] [place] [phone] Social History Tobacco Use Types Packs/Day Years [...] on filedocumented in this encounter Care Teams Sand Mill Operator Relationship Specialty Start Date End Date Veronica Riley MD PCP - General 01/07/22 Ness Levi PA [address] [place] [phone] Percussion Instrument Repairer 01/07/22 documented as of this encounter Additional Source Comments The information contained in this document represents components of the legal health record. It is not the complete legal health record.[facility]
== END 2024-11-27 10:29 | disposition home or self-care (01) ==
LOC: HO.MAMMO 10:28
PROVIDERS: PCP Physician Assistant Medical; Visit Provider Physician Assistant Medical
DX: Z12.31 Encounter for screening mammogram for malignant neoplasm of breast (principal)
CPT/HCPCS: 77063; 77067

== ENCOUNTER 2024-11-29 08:59 | Day surgery (SDC) | payer OTHER, SELFPAY ==
--- OUTSIDE RECORDS SUMMARY | 2024-11-22 13:14 | XMS_ITS | Encounter Summary ---
Author Organization [facility] Address [address] [address] Phone Care Team Providers Care Window Shade Installer Name Role Phone Veronica Riley MD Primary Care Provider [phone] Ness Levi Unavailable [phone] Encounter Details Date Type Department Care Team (Late st Contact Info) Description 02/03/2023 Procedure Pass [facility] Endoscopy Admitting Dept Virtual Department [address] [place] [phone] Social History Tobacco Use Types Packs/Day Years Used Date Smoking Tobacco: Never Assessed Education Answer Date Recorded Are you interested in more education? Not on zohaib e 08/20/2022 Are you concerned about learning? Not on file 08/20/2022 No 08/20/2022 No 08/20/2022 Digital Access Answer Date Recorded No 09/20/2022 No 09/20/2022 Reliable internet access at home? Not on file 09/20/2022 Device with a working camera? Not on file Comments Unknown Sex and Gender Information Value Date Recorded Sex Assigned at Not on file Legal Sex Female 2:35 PM EDT Gender Identity Not on file Sexual Orientation Not on file documented as of this encounter Plan of Treatment Not on file documented as of this encounter Visit Diagnoses Not on filedocumented in this encounter Care Teams Window Shade Installer Relationship Specialty Start Date End Date Veronica Riley MD PCP - General 01/07/22 Ness Levi PA [address] [place] [phone] Laundry Washer 01/07/22 documented as of this encounter Additional Source Comments The information contained in this document represents components of the legal health record. It is not the complete legal health record.[facility]
--- OUTSIDE RECORDS SUMMARY | 2024-11-22 13:14 | XMS_ITS | Encounter Summary ---
Author Organization [facility] Address [address] [place] [address] Care Team Providers Care Chief Radiation Therapist Name Role Phone Ness Levi Primary Care Provider [phone] Reason for Visit * Reason Onset Date Comments PAC Patient Request Call BackDR. MERRY 025 Encounter Details Date Type Department Care Team (Late st Contact Info) Description 10/18/2024 Telephone [facility] B [address] [place] [address] Telephone Intake, Staff PAC Patient Request Call BackDR. MERRY Social History Tobacco Use Types Packs/Day Years [...] PM EST documented as of this encounter Plan of Treatment Upcoming Encounters Date Type Department Care Team (Late st Contact Info) Description 05/14/2025 11:00 AM EST Follow-Up [facility]ine [facility] B [address] [place] [address] Rhett Johnson MD [address] [place] [address] documented as of this encounter Visit Diagnoses Not on filedocumented in this encounter Care Teams Chief Radiation Therapist Relationship Specialty Start Date End Date Ness Levi [address] [place] [address] PCP - General Physician Ice Maker 02/07/24 documented as of this encounter
[2024-11-27 07:37] VITALS: BMI 25.5
--- NOTE | 2024-11-28 10:07 | HO.ANESPROP2 ---
Documented by User: Sarah Mcclendon NP 11/28/24 10:10 HPI - Anesthesia Eval Consult details Narrative: 49yo F for Colonoscopy MS with IV tx q6m PMFSH Active Problems Active Problems: All Active Problems Mood changes (Acute) Asthma (Acute) Dyspnea (Acute) Acute pharyngitis, unspecified (Acute) Hip pain, bilateral (Acute) Somatic dysfunction of both sacroiliac joints (Acute) Scoliosis (Acute) Restrictive lung disease due to kyphoscoliosis (Acute) Cough (Acute) Environmental allergies (Acute) Elevated alkaline phosphatase level (Acute) Past Medical History Medical History Anxiety and depression ADHD Asthma Scoliosis Multiple sclerosis Iron deficiency anemia Family History Family History Sister Malignant neoplasm cervix Surgical History Surgical History No pertinent past surgical history Social History Social History Household Members: Spouse Patient Tobacco Use Status: Former Tobacco user Use of substances other than those prescribed or required for medical reasons: No Are you DNR?: No Advance Directives: No Advance Directives Information Provided: Yes service: No Current occupational status: unemployed Meds Allergies Allergy/AdvReac Type Severity Reaction Status Date / Time No Known Allergies Allergy Verified 11/29/24 09:08 Home Medications ?Medication ?Instructions ?Recorded ?Confirmed ?Last Taken ?Type bupropion HCl 300 mg 24 hr tablet, 300 mg PO QAM 08/10/23 11/29/24 Unknown History extended release (Wellbutrin XL) escitalopram oxalate 20 mg tablet 20 mg PO DAILY 08/10/23 11/29/24 Unknown History ocrelizumab 30 mg/mL intravenous 600 mg IV [id number] 08/10/23 11/29/24 Unknown History solution (Ocrevus) buspirone 10 mg tablet 20 mg PO BID 11/29/24 11/29/24 Unknown History Exam Height,Weight and Vital Signs: Height 5 ft 3 in Weight 65.317 kg Assessment and Plan Assessment Anesthesia Assessment: Chart Reviewed Documented by User: Rita Solano MD 11/29/24 10:26 PMFSH Past Medical History Medical History Anxiety and depression ADHD Asthma Scoliosis Multiple sclerosis Iron deficiency anemia Family History Family History Sister Malignant neoplasm cervix Family history of problems with anesthesia: No Surgical History Surgical History No pertinent past surgical history History of Problems with Anesthesia: No Social History Social History Household Members: Spouse Patient Tobacco Use Status: Former Tobacco user Use of substances other than those prescribed or required for medical reasons: No Are you DNR?: No Advance Directives: No Advance Directives Information Provided: Yes service: No Current occupational status: unemployed Meds Allergies Allergy/AdvReac Type Severity Reaction Status Date / Time No Known Allergies Allergy Verified 11/29/24 09:08 Home Medications ?Medication ?Instructions ?Recorded ?Confirmed ?Last Taken ?Type bupropion HCl 300 mg 24 hr tablet, 300 mg PO QAM 08/10/23 11/29/24 Unknown History extended release (Wellbutrin XL) escitalopram oxalate 20 mg tablet 20 mg PO DAILY 08/10/23 11/29/24 Unknown History ocrelizumab 30 mg/mL intravenous 600 mg IV [id number] 08/10/23 11/29/24 Unknown History solution (Ocrevus) buspirone 10 mg tablet 20 mg PO BID 11/29/24 11/29/24 Unknown History Exam Airway Mallampati Class: II TM Dist: >3cm Neck ROM: Full Heart: rrr Lungs: cta Assessment and Plan Assessment Anesthesia Assessment: Anesthesia Plan Discussed Final Anesthetic Review Family History of Problems with Anesthesia: No History of Problems with Anesthesia: No NPO: Yes ASA Class: III Final Preanesthetic Review: No Changes in Pt Med Stat, Meds/Allgs Chart Reviewed, Consent Obtained/Reviewed and Anes Risks/Benef Reviewed Patient Risk: Intermediate Procedure Risk: Low Anesthetic Plan Anesthetic Plan: MAC: Disposition: Standard PACU
[2024-11-29 09:13] VITALS: BMI 25.7
[2024-11-29 09:19] LABS: UPreg QC Valid YES
[2024-11-29 09:29] VITALS: BP 120/83; PULSE 78; RESP 15; TEMP 36.7; O2SAT 100
--- NOTE | 2024-11-29 09:34 | MHC.SHP ---
Pre-Procedural Eval Section A - 24 Hr Update-Section A only Date of Service: 11/29/24 The patient is an INPATIENT: No The patient has been examined within 24 hours of the surgical procedure. The History & Physical has been completed within 30 days and I have reviewed it.: No Section B - Complete if H&P > 30 days Chief Complaint: screening Relevant Family History (Specify if Yes): No Relevant Social History: Tobacco Use (Former smoker) Present Medications: see Short Stay Collaborative assessment Medical History: Significant History (Scoliosis Multiple sclerosis Iron deficiency anemia) History of Previous Operations: No relevant previous surgery Allergies: Allergies Allergy/AdvReac Type Severity Reaction Status Date / Time No Known Allergies Allergy Verified 11/29/24 09:08 Review of Systems Sugical H&P ROS: Negative: Constitution, Cardiovascular, Respiratory and Gastrointestinal Exam Surgical H&P Exam: Normal: Heart, Normal: Lungs, Normal: Extremities and Normal: Abdomen Plan Diagnosis/Plan: Unchanged I have reviewed the history and physical and performed a pertinent physical examination on my patient. No changes have occurred unless specified. Time Spent With Patient Time: Total time managing care of this patient today ____ minutes.
[2024-11-29] MEDS: Lactated Ringers 1,000 ML 100 ML IVCONT (09:41)
--- NOTE | 2024-11-29 11:12 | P.OPN-COLO_ITS ---
Colonoscopy Operative Note Operative Note Date of Service: 11/29/24 Narrative: COLONOSCOPY TILL CECUM Pre-op diagnosis: Colon cancer screening (First colon). Post-op diagnosis:? Hemorrhoids Endoscopist:? Bibi Taveras MD Anesthesia:?MAC Consent: Indications for the procedure and potential complications of bleeding, perforation, reaction to medications and missed diagnosis were discussed with the patient and informed consent was obtained. Instrument: Olympus PCF H 190 L variable stiffness pediatric colonoscope Monitoring: Vital signs and clinical assessment, intermittent blood pressure monitoring, continuous EKG monitoring, Pulse oximetry and Carbon Dioxide monitoring were done throughout the procedure. Please see anesthesia flowsheet. Colon withdrawl time was 17 minutes. Procedure: The patient was placed in the left lateral decubitis position and pre-procedure medications were administered. After a digital rectal examination of the ano-rectum, the video colonoscope was inserted into the rectum and advanced through the colon to the cecum. The colonoscope was slowly withdrawn in a retrograde panoramic fashion and the colon mucosa was carefully examined including a retroflexed view of the rectum. Findings and interventions are described below. Procedure Difficulty: Colon was long and tortuous and there was some loop formation. Findings: Terminal Ileum: Not evaluated Cecum: Normal Ascending Colon: Normal Transverse Colon: Normal Descending Colon: Normal Sigmoid Colon: Normal Rectum: Normal Ano-rectum: Small internal hemorrhoids Colon preparation: Excellent after some irrigation. [place] Bowel Preparation Scale Right colon; 3 Transverse colon: 3 Left colon; 3 (0 = Unprepared colon segment with mucosa not seen due to solid stool that cannot be cleared. 1 = Portion of mucosa of the colon segment seen, but other areas of the colon segment not well seen due to staining, residual stool and/or opaque liquid. 2 = Minor amount of residual staining, small fragments of stool and/or opaque liquid, but mucosa of colon segment seen well. 3 = Entire mucosa of colon segment seen well with no residual staining, small fragments of stool or opaque liquid) Impression and Post Procedure Diagnosis: Colonoscopy Findings: No polyps were detected Small hemorrhoids on retroflexed exam. Plan: Repeat Colonoscopy in 10 years (earlier if pt develops change in bowel habits or rectal bleeding). Above findings were reviewed with the patient and relevant handouts were given and the discharge area. Patient placed on the colonoscopy recall list for repeat colonoscopy in 10 years.
[2024-11-29 11:15] VITALS: BP 93/53; PULSE 67; RESP 18; TEMP 36.1; O2SAT 95
[2024-11-29 11:30] VITALS: BP 107/65; PULSE 65; RESP 18; TEMP 36.1; O2SAT 99
== END 2024-11-29 11:50 | disposition home or self-care (01) ==
PROVIDERS: Nurse Practitioner; PCP Physician Assistant Medical; Visit Provider Internal Medicine Gastroenterology
PROC: 0DJD8ZZ Inspection of Lower Intestinal Tract, Via Natural or Artificial Opening Endoscopic (ICD-10-PCS; CPT 45378; principal; 2024-11-29 10:20)
DX: Z12.11 Encounter for screening for malignant neoplasm of colon (principal); K64.8 Other hemorrhoids; J45.909 Unspecified asthma, uncomplicated; J98.4 Other disorders of lung; M41.50 Other secondary scoliosis, site unspecified; G35 Multiple sclerosis; D50.9 Iron deficiency anemia, unspecified; R74.8 Abnormal levels of other serum enzymes; F32.A Depression, unspecified; Z79.51 Long term (current) use of inhaled steroids; Z79.899 Other long term (current) drug therapy; Z87.891 Personal history of nicotine dependence; Z56.0 Unemployment, unspecified
CPT/HCPCS: 45378; 81025; J2003; J2704

== ENCOUNTER → 2024-11-29 08:59 | Outpatient (BNV) | payer OTHER, SELFPAY | PROVIDERS: PCP Physician Assistant Medical; Visit Provider Internal Medicine Gastroenterology | DX: Z12.11 Encounter for screening for malignant neoplasm of colon (principal); K64.8 Other hemorrhoids | CPT/HCPCS: 45378 ==